=== PATIENT | female | born 1950 | race Caucasian/White ===

== ENCOUNTER → 2018-03-25 | Outpatient (CLI) | payer MEDICARE, OTHER ==
--- NOTE | 2018-03-26 10:45 | RADIOLOGY REPORT (SQ) ---
EXAM DESCRIPTION: PET CT SKULL/THIGH COMPLETED DATE/TIME: 03/25/2018 6:52 pm REASON FOR STUDY: MALIGNANT NEOPLASM OF RECTUM C20 MALIGNANT NEOPLASM OF RECTUM COMPARISON: None. RADIONUCLIDE AND DOSE: 12.2 mCi F18 FDG The route of agent administration: Intravenous FASTING BLOOD SUGAR: 92 mg/dl CONTRAST TYPE AND DOSE: No CT contrast given. TECHNIQUE: Blood glucose level was verified. Above dose of FDG was injected intravenously. 2-D seg mented attenuation correction images were obtained from the base of the skull to the midthighs. Nonc ontrast CT images were obtained for attenuation correction and fusion with emission images. CT image s were performed without oral or intravenous contrast and are not sensitive for parenchymal lesions. A series of overlapping emission PET images were obtained. Images reviewed and manipulated at [facility] work station by the radiologist. Images stored on PACS. LIMITATIONS: None. FINDINGS: HEAD AND NECK: Subcentimeter nodule right lower pole thyroid SUV 8.2. Subcentimeter nodul e left lower pole thyroid SUV 6.3. CHEST: No areas of abnormal metabolic activity in the chest. ABDOMEN AND PELVIS: There is circumferential distal rectal increased activity with SUV of 18. This c orrelates with history of tumor. Remainder of the abdomen pelvis is otherwise unremarkable. PROXIMAL LOWER EXTREMITIES: No areas of abnormal metabolic activity in the soft tissues of the lower extremities. BONES: No abnormal metabolic activity in the visualized skeleton. ADDITIONAL CT FINDINGS: Old pins post ORIF right proximal humerus fracture. Degenerative changes lum bar spine. Colonic diverticuli without CT signs of diverticulitis. Post hysterectomy. OTHER: Liver background activity 2.4 SUV. Blood pool background activity 1.6 SUV IMPRESSION: Abnormal rectal activity worrisome for primary tumor. No PET-CT evidence of metastatic disease TECHNICAL DOCUMENTATION: JOB ID: [id number] [employer]- All Rights Reserved Reading location - IP/workstation name: [email or web address]
== END ==
LOC: RAD 16:30
PROVIDERS: ATTEND Internal Medicine Medical Oncology
DX: C20 Malignant neoplasm of rectum (principal)
CPT/HCPCS: 78815; A9552

== ENCOUNTER → 2018-04-01 | Outpatient (CLI) | payer MEDICARE, OTHER ==
--- NOTE | 2018-04-03 06:53 | RADIOLOGY REPORT (SQ) ---
EXAM DESCRIPTION: MRI PELVIS COMBO COMPLETED DATE/TIME: 04/01/2018 REASON FOR STUDY: MALIGNANT NEOPLASM OF RECTUM C20 MALIGNANT NEOPLASM OF RECTUM COMPARISON: None. TECHNIQUE: Sagittal, axial oblique, and coronal oblique T2-weighted images of the pelvis without con trast centered on the rectum. Axial images of the pelvis. FINDINGS: BRIEF DESCRIPTION OF MASS: 4.3 cm longitudinal by 3.1 cm AP x 1 cm transverse LOCATION OF TUMOR: Right lateral anorectal junction DISTANCE FROM ANORECTAL JUNCTION TO LOWER POLE OF TUMOR: 0 cm. Tumor extends into the rightward anal sphincter on sagittal image 20 and coronal image 13. CIRCUMFERENTIAL LOCATION OF TUMOR: Rightward lateral 50% circumferential involvement LENGTH OF TUMOR: 4.3 cm cm. INVOLVEMENT OF MUSCULARIS PROPIA: Yes EXTENSION BEYOND MUSCULARIS PROPIA: Not applicable. DISTANCE BETWEEN TUMOR AND MESORECTAL FASCIA: 2 mm PATHOLOGIC LYMPH NODES: None DESCRIPTION: Not applicable. EXTRAMURAL/VASCULAR INVASION: Not detected DESCRIPTION: Not applicable. INVASION OF PELVIC STRUCTURES: Not detected, patient is post hysterectomy. Fat planes between the va yashira and rectosigmoid are maintained DESCRIPTION: Not applicable. IMPRESSION: T STAGE: T2 Tumor invades but does not penetrate muscularis propria N STAGE: N0 No pathologic lymph nodes TECHNICAL DOCUMENTATION: JOB ID: [id number] [employer]- All Rights Reserved Reading location - IP/workstation name: [email or web address]
== END ==
LOC: RAD 14:00
PROVIDERS: ATTEND Radiology Radiation Oncology
DX: C20 Malignant neoplasm of rectum (principal)
CPT/HCPCS: 82565; 72197; A9576

== ENCOUNTER → 2018-08-09 | Outpatient (CLI) | payer MEDICARE, OTHER ==
--- NOTE | 2018-08-10 09:47 | XCELERA REPORT ---
[address] [address] Transthoracic Echocardiogram Report Name: RON CLAIRE Age: 68 yrs Gender: Female : 1950 Patient Status: Outpatient Patient Location: Study Date: 08/09/2018 03:01 PM Height: 63 in Weight: 260 lb BSA: 2.2 m2 Procedure: A complete two-dimensional transthoracic echocardiogram was performed (2D, M-mode, spectral and color flow Doppler). The study was technically difficult with many images being suboptimal in quality. Reason For Study: SOB Ordering Physician: RENATO HAWLEY Performed By: Gigi Posadas Interpretation Summary The study was technically difficult with many images being suboptimal in quality. Clinical correllation is requested. The left ventricular ejection fraction is within normal limits. Consider additional methods to assess LVEF such as MUGA scan, CTA heart, cardiac MRI, CEDRICK, etc. if clinically indicated. There is mild concentric left ventricular hypertrophy. The left ventricle is grossly normal size. Doppler measurements suggest impaired left ventricular relaxation, which is associated with grade I/IV or mild diastolic dysfunction Regional wall motion abnormalities cannot be excluded due to limited visualization. Right ventricular function cannot be assessed due to poor image quality. The right atrium is normal in size The left atrial size is normal. There is no mitral valve stenosis. There is no mitral regurgitation noted. There is no aortic valve stenosis No aortic regurgitation is present. There is a trace or physiologic amount of tricuspid regurgitation Tricuspid regurgitation jet envelope not well defined to measure RV systolic pressure accurately. The pulmonic valve is not well visualized. The aortic root is not well visualized but is probably normal size. The inferior vena cava was not well visualized There is no pericardial effusion. MMode/2D Measurements & Calculations RVDd: 3.6 cm LVIDd: 5.2 cm FS: 31.0 % Ao root diam: 3.1 cm IVSd: 1.1 cm LVIDs: 3.6 cm EDV(Teich): 127.7 ml Ao root area: 7.6 cm2 LVPWd: 1.1 cm ESV(Teich): 53.3 ml LA dimension: 3.0 cm EF(Teich): 58.3 % Doppler Measurements & Calculations MV E max yessica: MV P1/2t max yessica: Ao V2 max: LV V1 max P.1 cm/sec 73.5 cm/sec 162.2 cm/sec 6.3 mmHg MV A max yessica: MV P1/2t: 83.5 msec Ao max PG: LV V1 max: 98.7 cm/sec MVA(P1/2t): 2.6 cm2 10.5 mmHg 125.6 cm/sec MV E/A: 0.73 MV dec slope: 257.9 cm/sec2 MV dec time: 0.28 sec PA V2 max: TR max yessica: MV P1/2t-pr_phl: 90.8 cm/sec 187.1 cm/sec 83.5 msec PA max PG: TR max P.0 mmHg 3.3 mmHg Left Ventricle The left ventricle is grossly normal size. There is mild concentric left ventricular hypertrophy. The left ventricular ejection fraction is within normal limits. Consider additional methods to assess LVEF such as MUGA scan, CTA heart, cardiac MRI, CEDRICK, etc. if clinically indicated. Doppler measurements suggest impaired left ventricular relaxation, which is associated with grade I/IV or mild diastolic dysfunction. Regional wall motion abnormalities cannot be excluded due to limited visualization. Right Ventricle The right ventricle is not well visualized secondary to technical limitations. Right ventricular function cannot be assessed due to poor image quality. Atria The right atrium is normal in size. The left atrial size is normal. Interarterial septum not well visualized and not well dopplered. Cannot comment on ASD/PFO presence. Mitral Valve The mitral valve leaflets are sclerotic, but show no functional abnormalities. There is no mitral valve stenosis. There is no mitral regurgitation noted. Aortic Valve The aortic valve is not well visualized secondary to technical limitations. There is no aortic valve stenosis. No aortic regurgitation is present. Tricuspid Valve The tricuspid valve is not well visualized secondary to technical limitations. There is no tricuspid stenosis. There is a trace or physiologic amount of tricuspid regurgitation. Tricuspid regurgitation jet envelope not well defined to measure RV systolic pressure accurately. Pulmonic Valve The pulmonic valve is not well visualized. Great Vessels The aortic root is not well visualized but is probably normal size. The inferior vena cava was not well visualized. Effusions There is no pericardial effusion. : RENATO HAWLEY > Shyanne Doe
== END ==
LOC: SP 14:19
PROVIDERS: ATTEND Internal Medicine Medical Oncology
DX: R06.02 Shortness of breath (principal)
CPT/HCPCS: 93306

== ENCOUNTER 2018-08-14 16:00 | Emergency (ER) | payer MEDICARE ==
[2018-08-14] MEDS ORDERED: NORMAL SALINE 1000 ML 1,000 ML with POTASSIUM CHLORIDE 30 MEQ IV PRN ×2 (17:05)
[2018-08-14] MEDS ORDERED: POTASSIUM CHLORIDE 20 MEQ/15 ML UDCUP PO ONE ×2 (17:06→17:12)
--- NOTE | 2018-08-14 17:09 | ER Document Report ---
ED Medical Screen (RME) - General Chief Complaint: Abnormal Lab Results Stated Complaint: DIFFICULTY BREATHING Time Seen by Provider: 08/14/18 16:43 TRAVEL OUTSIDE OF THE [place] IN LAST 30 DAYS: No - HPI Patient complains to provider of: Hypokalemia Onset: Other - 68-year-old female presents for evaluation of hypokalemia found well attempting to obtain her normal chemotherapy regimen for her rectal cancer. Was noted to have a potassium of 2.5 and was subsequently sent to the emergency room. - Related Data Allergies/Adverse Reactions: No Known Allergies Allergy (Unverified 08/14/18 16:06) Past Medical History - Social History Chew tobacco use (# tins/day): No Frequency of alcohol use: None Drug Abuse: None Neurological Medical History: Reports: Hx Migraine Renal/ Medical History: Denies: Hx Peritoneal Dialysis GI Medical History: Reports: Hx Gastroesophageal Reflux Disease Musculoskeltal Medical History: Reports Hx Arthritis Past Surgical History: Reports: Hx Section, Hx Hysterectomy, Hx Orthopedic Surgery - bilateral knees; right arm; spinal fusions Physical Exam - Vital signs Vitals: Temp Pulse Resp BP Pulse Ox 98.9 F 106 H 18 124/65 99 08/14/18 16:11 08/14/18 16:11 08/14/18 16:11 08/14/18 16:11 08/14/18 16:11 Course - Re-evaluation Re-evalutation: 08/14/18 17:08 This is a 5-year-old female presents for evaluation of hypokalemia from her oncologist. She is never had any problems with her potassium in the past, was given oral supplementation yesterday has taken 2 pills last night 2 pills this morning is continued to have a low potassium today. As this patient will likely require IV supplementation oral supplementation will plan for cardiac monitoring obtaining a magnesium as well. I performed a rapid medical screening examination on this patient will defer further imaging, tests, disposition to next provider. - Vital Signs Vital signs: Temp Pulse Resp BP Pulse Ox 98.9 F 106 H 18 124/65 99 08/14/18 16:11 08/14/18 16:11 08/14/18 16:11 08/14/18 16:11 08/14/18 16:11 Doctor's Discharge - Discharge Referrals: RENATO HAWLEY MD [Primary Care Provider] - Follow up as needed
--- NOTE | 2018-08-14 17:31 | ER Document Report ---
ED General - General Chief Complaint: Abnormal Lab Results Stated Complaint: DIFFICULTY BREATHING Time Seen by Provider: 08/14/18 16:43 TRAVEL OUTSIDE OF THE [place] IN LAST 30 DAYS: No - HPI Notes: Patient is a 68-year-old female that presents to the emergency department for chief complaint of hypokalemia. Patient has rectal cancer and received chemotherapy today. Her oncologist has been drawing routine lab work and monitoring her hypokalemia. Patient reports she was started on oral potassium 40 mg yesterday and took a second dose today. She then had a repeat blood test which showed persistent hypokalemia at 2.5. Patient was referred to the emergency room for further workup of her hypokalemia. She states that she has had some lower extremity swelling but is not on any diuretics for concern of her potassium issues. She states some intermittent shortness of breath but currently is not feeling any shortness of breath. She denies any chest pain, fevers and palpitations. She denies any diaphoresis. She is nauseated but states that is usual after receiving chemotherapy. She denies any history of hypokalemia in the past. Past Medical History: rectal cancer Past Surgical History: Reviewed in chart Social History: Reviewed in chart Family History: Reviewed and noncontributory for presenting illness Allergies: Reviewed, see documented allergy list. REVIEW OF SYSTEMS: CONSTITUTIONAL : No fever No chills No diaphoresis No recent illness EENT: No vision changes No congestion No sore throat CARDIOVASCULAR: No chest pain No palpitations Edema RESPIRATORY: No shortness of breath No cough No difficulty breathing GASTROINTESTINAL: No abdominal pain No nausea No vomiting No diarrhea GENITOURINARY: No dysuria No hematuria No difficulty urinating MUSCULOSKELETAL: No back pain No leg pain No arm pain SKIN: No rashes No lesions LYMPHATIC: No swollen, enlarged glands. NEUROLOGICAL: No lightheadedness No headache No weakness No paresthesias PSYCHIATRIC: No anxiety No depression PHYSICAL EXAMINATION: Vital signs reviewed, nursing noted reviewed. GENERAL: Well-appearing, well-nourished and in no acute distress. HEAD: Atraumatic, normocephalic. EYES: Eyes appear normal, extraocular movements intact, sclera anicteric, conjunctiva are normal. ENT: nares patent, oropharynx clear without exudates. Moist mucous membranes. NECK: Normal range of motion, supple without lymphadenopathy LUNGS: Breath sounds clear to auscultation bilaterally and equal. No wheezes rales or rhonchi. HEART: Regular rate and rhythm without murmurs ABDOMEN: Soft, nontender, normoactive bowel sounds. No rebound, guarding, or rigidity. No masses appreciated. EXTREMITIES: Nontender, good range of motion, +2 pitting edema bilateral lower extremities NEUROLOGICAL: No focal neurological deficits. Moves all extremities spontaneously Motor and sensory grossly intact on exam. PSYCH: Normal mood, normal affect. SKIN: Warm, Dry, normal turgor, no rashes or lesions noted on exposed skin - Related Data Allergies/Adverse Reactions: No Known Allergies Allergy (Unverified 08/14/18 16:06) Past Medical History - Social History Smoking Status: Never Smoker Chew tobacco use (# tins/day): No Frequency of alcohol use: None Drug Abuse: None Family History: Reviewed & Not Pertinent Patient has suicidal ideation: No Patient has homicidal ideation: No Neurological Medical History: Reports: Hx Migraine Renal/ Medical History: Denies: Hx Peritoneal Dialysis GI Medical History: Reports: Hx Gastroesophageal Reflux Disease Musculoskeletal Medical History: Reports Hx Arthritis Past Surgical History: Reports: Hx Section, Hx Hysterectomy, Hx Orthopedic Surgery - bilateral knees; right arm; spinal fusions Review of Systems - Review of Systems Notes: Dictated Physical Exam - Vital signs Vitals: Temp Pulse Resp BP Pulse Ox 98.9 F 106 H 18 124/65 99 08/14/18 16:11 08/14/18 16:11 08/14/18 16:11 08/14/18 16:11 08/14/18 16:11 - Notes Notes: Dictated Course - Re-evaluation Re-evalutation: 08/14/18 17:31 Vitals reviewed. Nursing notes reviewed. Patient in no acute distress. Her potassium today was 2.5. She was ordered placement. She has been taking home potassium supplementation with no improvement and is requiring admission for cardiac monitoring and repeat potassium levels. Patient is in agreement with this plan. 08/14/18 17:47 Patient's care was discussed with Dr. Frausto. Because she has tried potassium replacement at home with persistent hypokalemia I discussed admitting the patient with him. He would like for her to have replacement in the emergency room with repeat BMP tonight. If she is still low on repeat BMP then he will accept admission otherwise she will follow for outpatient recheck in 1-2 days with her PCP. 08/14/18 22:07 Repeat BMP shows potassium is 3.3. Patient is currently asymptomatic. She will be discharged home in stable condition. She has a prescription for potassium 40 twice daily and will continue that prescription tomorrow. She will follow in 1-2 days with her primary care doctor for recheck of her potassium. She will return for any new or worsening symptoms or if she is unable to establish close follow-up. Laboratory 08/14/18 08/14/18 17:33 21:06 Sodium 136.7 L Potassium 3.3 L Chloride 104 Carbon Dioxide 27 Anion Gap 6 BUN 7 Creatinine 0.88 Est GFR ( Amer) > 60 Est GFR (Non-Af Amer) > 60 Glucose 128 H Calcium 8.1 L Magnesium 1.8 - Vital Signs Vital signs: Temp Pulse Resp BP Pulse Ox 98.9 F 106 H 22 H 126/36 H 95 08/14/18 16:11 08/14/18 16:11 08/14/18 21:01 08/14/18 21:01 08/14/18 21:01 - Laboratory Result Diagrams: 08/14/18 21:06 Laboratory results interpreted by me: 08/14/18 21:06 Sodium 136.7 L Potassium 3.3 L Glucose 128 H Calcium 8.1 L - EKG Interpretation by Me Additional EKG results interpreted by me: 08/14/18 17:48 Interpreted by myself 1744: Normal sinus rhythm, rate 87, left axis, right bundle branch block, left anterior fascicular block, no ectopy Discharge - Discharge Clinical Impression: Hypokalemia, Peripheral edema Condition: Stable Disposition: HOME, SELF-CARE Instructions: Hypokalemia ([facility]) Additional Instructions: Please return to the emergency department if you have any worsening, or concern of your symptoms. Please return to the emergency department if you develop chest pain, difficulty breathing, severe abdominal pain, or ongoing vomiting. Please follow-up with your primary care physician in 2-3 days for a recheck of your potassium If prescribed, take all medications as directed. If you have any questions or concerns do not hesitate to return the emergency department for evaluation. Continue taking your home potassium as already directed starting tomorrow morning Referrals: RENATO HAWLEY MD [Primary Care Provider] - Follow up in 3-5 days
[2018-08-14] MEDS: POTASSI CL 20 MEQ/50 ML RIDER 20 MEQ/50 ML RTUPB IV SCH ×2 (17:43→19:20)
[2018-08-14 21:32] LABS: ANION GAP 6 (5-19); BLOOD UREA NITROGEN 7 mg/dL (7-20); CALCIUM 8.1 mg/dL (8.4-10.2); CARBON DIOXIDE 27 mmol/L (22-30); CHLORIDE 104 mmol/L (98-107); GLUCOSE 128 mg/dL (75-110); POTASSIUM 3.3 mmol/L (3.6-5.0); SODIUM 136.7 mmol/L (137-145)
[2018-08-14 22:27] VITALS: BP 124/46
--- NOTE | 2018-08-15 10:12 | EKG REPORT ---
SEVERITY:- ABNORMAL ECG - SINUS RHYTHM RBBB AND LAFB : Confirmed by: Katy Zaldivar MD 15-Aug-2018 10:12:20
== END 2018-08-14 22:27 | disposition home or self-care (01) ==
LOC: ER 16:00
DX: E87.6 Hypokalemia (principal); R60.0 Localized edema; C20 Malignant neoplasm of rectum; R06.02 Shortness of breath; R11.0 Nausea; Z79.899 Other long term (current) drug therapy; I45.2 Bifascicular block
CPT/HCPCS: 93005; 36591; 99285; 96365; 96366; 36415; 83735; 80048; 80053; 93010; A9270; J3480

== ENCOUNTER 2018-10-05 12:11 | Emergency (ER) | payer MEDICARE, OTHER ==
[2018-10-05 12:21] VITALS: BP 136/64
--- NOTE | 2018-10-05 13:01 | ER Document Report ---
ED Fall - General Chief Complaint: Fall Stated Complaint: FALL/HEAD AND WRIST INJURY Time Seen by Provider: 10/05/18 12:25 Mode of Arrival: Ambulatory Information source: Patient Notes: Chief complaint: Head injury History of complain:( obtained from----patient) 68 years old female on Xarelto, had a fall yesterday and injured her right wrist as well as right periorbital region. Went to see her orthopedic surgeon and was diagnosed with wrist fracture, splinted. Then went to see her oncologist oncologist sent over here to be ruled out for intracranial bleed. Denies any headache focal weakness. But chronic tingling sensation over lower extremities and upper extremities. She was given a walker but not been walking with the car. Tripped and fell last night. Denies any injury to the neck. Denies any injury to the upper limbs or lower denies any chest pain shortness of breath. Onset: As above since Duration: Yesterday Severity: Mild Quality: Mild Context: As described above Exacerbating factor and relieving factors: REVIEW OF SYSTEMS: CONSTITUTIONAL : Denies fever, chills, or sweats. Denies recent illness. EENT: Denies eye, ear, throat, or mouth pain or symptoms. Denies nasal or sinus congestion or discharge. Denies throat, tongue, or mouth swelling or difficulty swallowing. CARDIOVASCULAR: Denies chest pain. Denies palpitations or racing or irregular heart beat. Denies ankle edema. RESPIRATORY: Denies cough, cold, or chest congestion. Denies shortness of breath, difficulty breathing, or wheezing. GASTROINTESTINAL: Denies distention. Denies nausea, vomiting, or diarrhea. Denies blood in vomitus, stools, or per rectum. Denies black, tarry stools. Denies constipation. GENITOURINARY: Denies difficulty urinating, painful urination, burning, frequency, blood in urine, or discharge. FEMALE GENITOURINARY: Denies vaginal bleeding, heavy or abnormal periods, irregular periods. Denies vaginal discharge or odor. MUSCULOSKELETAL: Denies back or neck pain or stiffness. Denies joint pain or swelling. SKIN: Denies rash, lesions or sores. HEMATOLOGIC : Denies easy bruising or bleeding. LYMPHATIC: Denies swollen, enlarged glands. NEUROLOGICAL: Denies confusion or altered mental status. Denies passing out or loss of consciousness. Denies dizziness or lightheadedness. Denies headache. Denies weakness or paralysis or loss of use of either side. Denies problems with gait or speech. Denies sensory loss, numbness, or tingling. Denies seizures. PSYCHIATRIC: Denies anxiety or stress. Denies depression, suicidal ideation, or homicidal ideation. ALL OTHER SYSTEMS REVIEWED AND NEGATIVE. PHYSICAL EXAMINATION: GENERAL: Well-appearing, well-nourished and in no acute distress. Obesity HEAD: Atraumatic, normocephalic. Right periorbital contusion noted with tenderness. EYES: Pupils equal round and reactive to light, extraocular movements intact, conjunctiva are normal. ENT: Nares patent, oropharynx clear without exudates. Moist mucous membranes. NECK: Normal range of motion, supple without lymphadenopathy LUNGS: Breath sounds clear to auscultation bilaterally and equal. No wheezes rales or rhonchi. HEART: Regular rate and rhythm without murmurs ABDOMEN: Soft, nontender, nondistended abdomen. No guarding, no rebound. No masses appreciated. Examination of genitals-deferred Musculoskeletal: Normal range of motion, no pitting or edema. No cyanosis. Except the right wrist. NEUROLOGICAL: Cranial nerves grossly intact. Normal speech, normal gait. Normal sensory, motor exams PSYCH: Normal mood, normal affect. SKIN: Warm, Dry, normal turgor, no rashes or lesions noted. Dictation was performed using [id number] voice recognition software TRAVEL OUTSIDE OF THE [place] IN LAST 30 DAYS: No - HPI Notes: Dictated - Related data Allergies/Adverse Reactions: No Known Allergies Allergy (Verified 10/05/18 12:11) Home Medications: neurotin, 600 mg qid. robaxin 750 mg 1 prn. fiorcet 1-2 prn. melatonin 10 mg qhs. zofran 4 mg prn. ativan 1 mg prn for nausea. phenergan 25 mg prn. xeralto 20mg daily. lasix 40 mg daily. aldactone 25 mg daily. potassium 20 meq daily Past Medical History - Social History Smoking Status: Never Smoker Chew tobacco use (# tins/day): No Frequency of alcohol use: None Drug Abuse: None Lives with: Family Family History: Reviewed & Not Pertinent Patient has suicidal ideation: No Patient has homicidal ideation: No Neurological Medical History: Reports: Hx Migraine Renal/ Medical History: Denies: Hx Peritoneal Dialysis GI Medical History: Reports: Hx Gastroesophageal Reflux Disease Musculoskeletal Medical History: Reports Hx Arthritis Past Surgical History: Reports: Hx Section, Hx Hysterectomy, Hx Orthopedic Surgery - bilateral knees; right arm; spinal fusions Review of Systems - Review of Systems Notes: Dictated Physical Exam - Vital signs Vitals: Temp Pulse Resp BP Pulse Ox 98.3 F 103 H 18 136/64 H 96 10/05/18 12:19 10/05/18 12:19 10/05/18 12:19 10/05/18 12:19 10/05/18 12:19 - Notes Notes: Dictated Course - Vital Signs Vital signs: Temp Pulse Resp BP Pulse Ox 98.3 F 103 H 18 136/64 H 96 10/05/18 12:19 10/05/18 12:19 10/05/18 12:19 10/05/18 12:19 10/05/18 12:19 Discharge - Discharge Referrals: RENATO HAWLEY MD [Primary Care Provider] - Follow up as needed
--- NOTE | 2018-10-05 13:11 | RADIOLOGY REPORT (SQ) ---
EXAM DESCRIPTION: CT HEAD WITHOUT COMPLETED DATE/TIME: 10/05/2018 12:57 pm REASON FOR STUDY: Fall injury to head neck and face , headache COMPARISON: CT facial bones same date TECHNIQUE: Axial images acquired through the brain without intravenous contrast. Images reviewed wi th bone, brain and subdural windows. Additional sagittal and coronal reconstructions were generated. Images stored on PACS. All CT scanners at this facility use dose modulation, iterative reconstruction, and/or weight based d osing when appropriate to reduce radiation dose to as low as reasonably achievable (ALARA). [facility]: Dose Right [facility]: CareDose [facility]: Dose Right [facility]: Teradose 4D [facility]: [employer] RADIATION DOSE: CT Rad equipment meets quality standard of care and radiation dose reduction techniq ues were employed. CTDIvol: 53.2 mGy. DLP: 991 mGy-cm. mGy. LIMITATIONS: None. FINDINGS: VENTRICLES: Normal size and contour. CEREBRUM: No masses. No acute brain parenchymal hemorrhage. No midline shift. No evidence for acut e infarction. Patient has an old left occipital craniotomy and focal encephalomalacia along the left occipital lobe axial image 13. CEREBELLUM: No masses. No hemorrhage. No alteration of density. No evidence for acute infarction. EXTRAAXIAL SPACES: Along the posterior falx, a thin rim acute subdural is present along the leftward falx, 2 mm in thickness. This report was called to Dr Dipti Reyna in the emergency room 1245 hours ORBITS AND GLOBE: No intra- or extraconal masses. Normal contour of globe without masses. CALVARIUM: Old occipital craniotomy. PARANASAL SINUSES: No fluid or mucosal thickening. SOFT TISSUES: Right frontal scalp hematoma without underlying skull fracture OTHER: Minimally depressed right nasal bone fracture, may be chronic or acute IMPRESSION: Thin rim acute falx subdural hemorrhage 2 mm in thickness. Right frontal scalp hematoma without underlying skull fracture Age-indeterminate right nasal bone fracture EVIDENCE OF ACUTE STROKE: NO. COMMENT: Pertinent findings on the imaging study reported as a CRITICAL RESULT to DIPTI REYNA MD at1 2:45 on 10/05/2018. Category of Critical Result: Thin rim acute falx subdural hemorrhage 2 mm in thickness. No mass effe ct Quality ID # [id number]: Final reports with documentation of one or more dose reduction techniques (e.g., Au tomated exposure control, adjustment of the mA and/or kV according to patient size, use of iterative reconstruction technique) TECHNICAL DOCUMENTATION: JOB ID: [id number] [employer]- All Rights Reserved Reading location - IP/workstation name: [email or web address]
--- NOTE | 2018-10-05 13:12 | ER Document Report ---
ED General - General Chief Complaint: Fall Stated Complaint: FALL/HEAD AND WRIST INJURY Time Seen by Provider: 10/05/18 12:25 Mode of Arrival: Ambulatory Notes: Patient is a 68-year-old female with history of rectal carcinoma, and DVT, currently on Xarelto that presents to the emergency department for chief complaint of head injury after fall. Patient reports that she had a mechanical fall yesterday, she tripped outside, and hit her head on the concrete, denies loss of consciousness. She has some pain in her wrist and knees bilaterally, she did fall onto her knees as well, she has bilateral total knee arthroplasties. She was seen by orthopedic surgeon today, she was diagnosed with a fracture of her right wrist, and placed in a splint, and is following up with them. She then went to her oncologist office, advised to go to the ED, to be evaluated for possible intracranial injury. She denies having any headache at this time, denies lightheadedness, numbness, tingling or weakness in any extremity, denies facial droop or slurred speech. She is otherwise been doing well with the exception of the pain related to her traumatic injuries. She does have pain and some swelling across her nose as well from her injury. She currently rates the pain she is having generally as a 4 out of 10, has not taken anything for pain today. She last took her Xarelto yesterday morning, did not take any today. Past Medical History: DVT, rectal cancer Past Surgical History: Hysterectomy Social History: Denies current tobacco, alcohol or illicit drug use Family History: Reviewed and noncontributory for presenting illness Allergies: Reviewed, see documented allergy list. REVIEW OF SYSTEMS: Other than noted above, the 12 point review of systems was reviewed with the patient and were negative, all pertinent findings are included in the HPI. PHYSICAL EXAMINATION: Vital signs reviewed, nursing noted reviewed. GENERAL: Well-appearing, well-nourished and in no acute distress. HEAD: Nasal bridge is mildly ecchymotic and edematous, tender to palpate, normocephalic. EYES: Periorbital ecchymosis on the right, no tenderness to palpation around the orbital rims, or over the zygoma, extraocular movements intact, sclera anicteric, conjunctiva are normal. ENT: nares patent, oropharynx clear without exudates. Moist mucous membranes. Tenderness to palpation over the nasal bridge. No septal hematomas bilaterally , TMs appear normal bilaterally, no CSF otorrhea, or hemotympanum NECK: Normal range of motion, supple without lymphadenopathy, no midline tenderness LUNGS: Breath sounds clear to auscultation bilaterally and equal. No wheezes rales or rhonchi. HEART: Regular rate and rhythm without murmurs ABDOMEN: Soft, nontender, normoactive bowel sounds. No rebound, guarding, or rigidity. No masses appreciated. EXTREMITIES: Patient has a Velcro splint over the right forearm, neurovascularly intact distally, cap refill less than 3 seconds in all digits. Patient has good range of motion of the bilateral lower extremities, particularly of the knees, she had mild anterior tenderness over the patella, mild ecchymosis, without large abrasion or lacerations, she has good range of motion with flexion and extension without difficulty or pain or discomfort. Patient has been able to ambulate, without pain or discomfort in the hips. NEUROLOGICAL: No focal neurological deficits. Moves all extremities spontaneously Motor and sensory grossly intact on exam. PSYCH: Normal mood, normal affect. SKIN: Warm, Dry, normal turgor, no rashes or lesions noted on exposed skin TRAVEL OUTSIDE OF THE [place] IN LAST 30 DAYS: No - Related Data Allergies/Adverse Reactions: No Known Allergies Allergy (Verified 10/05/18 12:11) Home Medications: neurotin, 600 mg qid. robaxin 750 mg 1 prn. fiorcet 1-2 prn. melatonin 10 mg qhs. zofran 4 mg prn. ativan 1 mg prn for nausea. phenergan 25 mg prn. xeralto 20mg daily. lasix 40 mg daily. aldactone 25 mg daily. potassium 20 meq daily Past Medical History - General Information source: Patient - Social History Smoking Status: Never Smoker Chew tobacco use (# tins/day): No Frequency of alcohol use: None Drug Abuse: None Lives with: Family Family History: Reviewed & Not Pertinent Patient has suicidal ideation: No Patient has homicidal ideation: No Neurological Medical History: Reports: Hx Migraine Renal/ Medical History: Denies: Hx Peritoneal Dialysis GI Medical History: Reports: Hx Gastroesophageal Reflux Disease Musculoskeletal Medical History: Reports Hx Arthritis Past Surgical History: Reports: Hx Section, Hx Hysterectomy, Hx Orthopedic Surgery - bilateral knees; right arm; spinal fusions Physical Exam - Vital signs Vitals: Temp Pulse Resp BP Pulse Ox 98.3 F 103 H 18 136/64 H 96 10/05/18 12:19 10/05/18 12:19 10/05/18 12:19 10/05/18 12:19 10/05/18 12:19 Course - Re-evaluation Re-evalutation: Patient seen and examined vital signs reviewed. Laboratory data and imaging were ordered as appropriate for the patient's presenting symptoms and complaint, with consideration of any critical or life threatening conditions that may be associated with their obtained history and exam as noted above. Patient was offered medication for pain but declined at this time stating that it was tolerable. Results were reviewed when available and demonstrated CT of the head demonstrated a subdural hematoma along the falx, measuring 2 mm, as well as nasal bridge fracture. I discussed this case with the radiologist, placed a call to [facility], and discussed the case with the trauma surgeon Dr. Hood, who after explaining the patient has had no neurological dysfunction , no depressed mental status, and has been ambulate without difficulty, that she has had her own observation., And he agreed that the patient would not need any further evaluation or workup for this unless her symptoms would change , and to withhold her Xarelto medication. No need for any anticoagulation reversal given that her last dose was over 24 hours ago. Our discussion included the risks and benefits of having the patient off Xarelto for her right upper extremity DVT, I discussed this with the patient, that she will need to be off of this medication for a minimum of 2 weeks, to follow-up with her splunk dashboard developer, I did call the patient's splunk dashboard developer office however she was not in office, but discussed this with her nurse Haley, who will relay the message that the patient needs to be off this medication, and they can discuss whether to continue it at that time, when weighing the risks and benefits in the office. Patient's blood work demonstrated leukocytosis, patient is undergoing chemotherapy, receives dexamethasone, with her chemotherapy, likely leukemoid reaction, no evidence of acute infection, this could also be acute phase reactant from the patient's acute injuries. The patient was re-evaluated and was stable, she was given potassium supplementation, patient will be discharged home, prescription for [place] to take for pain for her wrist, advised to follow-up with orthopedic surgeon as directed, she is given referral to ENT for her nasal bone fracture, and advised to follow-up with her oncologist as noted above. Evaluation was most consistent with subdural hematoma, closed head injury, fall , right wrist fracture, nasal bone fracture Results were discussed with the patient at this point, after careful consideration I feel that that patient can be discharged from the emergency department, the patient was educated treatments and reasons to return to the emergency department based on their presumed diagnosis as noted above, they were advised to followup with a primary care physician in 2-3 days. Patient was agreeable to plan of care. *Note is created using voice recognition software and may contain spelling, syntax or grammatical errors. Laboratory 10/05/18 10/05/18 10/05/18 13:14 13:14 13:14 WBC 22.2 H RBC 3.17 L Hgb 10.0 L Hct 29.5 L MCV 93 MCH 31.5 MCHC 33.8 RDW 17.5 H Plt Count 145 L Seg Neutrophils % 94.3 H Lymphocytes % 2.9 L Monocytes % 2.5 L Eosinophils % 0.1 Basophils % 0.2 Absolute Neutrophils 20.9 H Absolute Lymphocytes 0.6 Absolute Monocytes 0.6 Absolute Eosinophils 0.0 Absolute Basophils 0.1 PT 15.6 H INR 1.17 APTT 28.8 Sodium 137.5 Potassium 3.3 L Chloride 98 Carbon Dioxide 25 Anion Gap 15 BUN 7 Creatinine 0.62 Est GFR ( Amer) > 60 Est GFR (Non-Af Amer) > 60 Glucose 101 Calcium 9.0 Total Bilirubin 0.8 Direct Bilirubin 0.3 Neonat Total Bilirubin Not Reportable Neonat Direct Bilirubin Not Reportable Neonat Indirect Bili Not Reportable AST 62 H ALT 39 Alkaline Phosphatase 210 H Total Protein 6.8 Albumin [address] 10/05/18 12:25 IMPRESSION: No acute fracture or malalignment Facial Bones CT 10/05/18 12:25 IMPRESSION: Acute right nasal bone fracture, minimally depressed. Right frontal scalp swelling without underlying frontal bone fracture Head CT 10/05/18 12:25 IMPRESSION: Thin rim acute falx subdural hemorrhage 2 mm in thickness. Right frontal scalp hematoma without underlying skull fracture Age-indeterminate right nasal bone fracture EVIDENCE OF ACUTE STROKE: NO. - Vital Signs Vital signs: Temp Pulse Resp BP Pulse Ox 98.3 F 103 H 18 136/64 H 96 10/05/18 12:19 10/05/18 12:19 10/05/18 12:19 10/05/18 12:19 10/05/18 12:19 - Laboratory Result Diagrams: 10/05/18 13:14 10/05/18 13:14 Laboratory results interpreted by me: 10/05/18 10/05/18 10/05/18 13:14 13:14 13:14 WBC 22.2 H RBC 3.17 L Hgb 10.0 L Hct 29.5 L RDW 17.5 H Plt Count 145 L Seg Neutrophils % 94.3 H Lymphocytes % 2.9 L Monocytes % 2.5 L Absolute Neutrophils 20.9 H PT 15.6 H Potassium 3.3 L AST 62 H Alkaline Phosphatase 210 H Critical Care Note - Critical Care Note Total time excluding time spent on procedures (mins): 40 Comments: Critical care time 40 minutes exclusive from separate billable procedures for a patient requiring complex medical decision making, and high potential for clinical deterioration. In a patient on Xarelto, with a subdural hematoma, requiring emergent evaluation, examination, and re-evaluations, discussion with multiple consultants. Time spent obtaining history from patient or surrogate, discussions with consultants, development of treatment plan with patient or surrogate, evaluation of patient's response to treatment, examination of patient , ordering and performing treatments and interventions, ordering and review of laboratory studies, re-evaluation of patient's condition, ordering and review of radiographic studies and review of old charts Discharge - Discharge Clinical Impression: Subdural hematoma, Hypokalemia Closed head injury Qualifiers: Encounter type: initial encounter Qualified Code(s): S09.90XA - Unspecified injury of head, initial encounter Nasal bone fracture Qualifiers: Encounter type: initial encounter Fracture type: closed Qualified Code(s): S02.2XXA - Fracture of nasal bones, initial encounter for closed fracture Fall Qualifiers: Encounter type: initial encounter Qualified Code(s): W19.XXXA - Unspecified fall, initial encounter Right wrist fracture Qualifiers: Encounter type: initial encounter Fracture type: closed Qualified Code(s): S62.101A - Fracture of unspecified carpal bone, right wrist, initial encounter for closed fracture Condition: Stable Disposition: HOME, SELF-CARE Instructions: Fracture of the Nose ([facility]), Head Injury Precautions ([facility]) Additional Instructions: DISCONTINUE TAKING YOUR XARELTO UNTIL FURTHER INSTRUCTED BY YOUR ONCOLOGIST. IF YOU DEVELOP ANY SIGNS OF WORSENING SUCH WEAKNESS, OR NUMBESS, SLURRED SPEECH, OR SEVERE HEADACHE, PLEASE RETURN TO THE EMERGENCY DEPARTMENT IMMEDIATELY. Prescriptions: Hydrocodone/Acetaminophen [[place] 5-325 mg Tablet] 1 tab PO Q6H PRN 5 Days #20 tablet PRN Reason: HAND PAIN Referrals: RENATO HAWLEY MD [ACTIVE STAFF] - Follow up in 3-5 days LATRICIA TRINIDAD DO [ASSOCIATE] - Follow up as needed (ENT)
--- NOTE | 2018-10-05 13:14 | RADIOLOGY REPORT (SQ) ---
EXAM DESCRIPTION: CT FACIAL AREA WITHOUT COMPLETED DATE/TIME: 10/05/2018 12:57 pm REASON FOR STUDY: Fall injury to head neck and face COMPARISON: CT brain same date TECHNIQUE: Noncontrasted images through the facial bones and orbits windowed for bone and soft tissu e. Additional coronal and sagittal reconstructed images reviewed. All images stored on PACS. All CT scanners at this facility use dose modulation, iterative reconstruction, and/or weight based d osing when appropriate to reduce radiation dose to as low as reasonably achievable (ALARA). [facility]: Dose Right [facility]: CareDose [facility]: Dose Right [facility]: Teradose 4D [facility]: [employer] RADIATION DOSE: CT Rad equipment meets quality standard of care and radiation dose reduction techniq ues were employed. CTDIvol: 30.4 mGy. DLP: 545 mGy-cm. mGy. LIMITATIONS: None. FINDINGS: FACIAL BONES: Acute minimally depressed right nasal bone fracture. This is best shown on axial images 38-40. No other acute facial fractures are identified. Mandible intact. Upper cervica l spine intact. ORBITS: Intact. No fracture. Symmetric intact globes and retroorbital soft tissues. PARANASAL SINUSES: Clear. No significant mucosal thickening, mass or fluid. No nasal polyps. Maxill pérez sinus outlets are patent. SOFT TISSUES: Right frontal scalp swelling without underlying frontal bone fracture INFERIOR BRAIN: Posterior thin rim acute Falx subdural seen on CT brain is not included in the field of view OTHER: No other significant finding. IMPRESSION: Acute right nasal bone fracture, minimally depressed. Right frontal scalp swelling without underlying frontal bone fracture TECHNICAL DOCUMENTATION: JOB ID: [id number] Quality ID # [id number]: Final reports with documentation of one or more dose reduction techniques (e.g., Au tomated exposure control, adjustment of the mA and/or kV according to patient size, use of iterative reconstruction technique) 2010 [email or web address]- All Rights Reserved Reading location - IP/workstation name: [email or web address]
--- NOTE | 2018-10-05 13:16 | RADIOLOGY REPORT (SQ) ---
EXAM DESCRIPTION: CT CERVICAL SPINE WITHOUT COMPLETED DATE/TIME: 10/05/2018 12:57 pm REASON FOR STUDY: Fall injury to head neck and face neck pain COMPARISON: CT brain and CT facial bones same date TECHNIQUE: Axial images acquired through the cervical spine without intravenous contrast. Images re viewed with lung, soft tissue and bone windows. Reconstructed coronal and sagittal MPR images review ed. Images stored on PACS. All CT scanners at this facility use dose modulation, iterative reconstruction, and/or weight based d osing when appropriate to reduce radiation dose to as low as reasonably achievable (ALARA). [facility]: Dose Right [facility]: CareDose [facility]: Dose Right [facility]: Teradose 4D [facility]: [employer] RADIATION DOSE: CT Rad equipment meets quality standard of care and radiation dose reduction techniq ues were employed. CTDIvol: 23.8 mGy. DLP: 498 mGy-cm. mGy. LIMITATIONS: None. FINDINGS: ALIGNMENT: Anatomic. MINERALIZATION: Normal. VERTEBRAL BODIES: No fractures or dislocation. DISCS: Post fusion with anterior fixation plate and anchoring screws at C5-6. FACETS, LATERAL MASSES, POSTERIOR ELEMENTS: No fractures. No dislocation. No acute findings. HARDWARE: None in the spine. VISUALIZED RIBS: No fractures. LUNG APICES AND SOFT TISSUES: No significant or acute findings. OTHER: No other significant finding. IMPRESSION: No acute fracture or malalignment TECHNICAL DOCUMENTATION: JOB ID: [id number] Quality ID # [id number]: Final reports with documentation of one or more dose reduction techniques (e.g., Au tomated exposure control, adjustment of the mA and/or kV according to patient size, use of iterative reconstruction technique) 2010 [employer]- All Rights Reserved Reading location - IP/workstation name: [email or web address]
[2018-10-05 13:46] LABS: ABSOLUTE BASOPHILS # (AUTO) 0.1 10^3/uL (0.0-0.2); ABSOLUTE LYMPHOCYTES (AUTO) 0.6 10^3/uL (0.5-4.7); ABSOLUTE MONOCYTES (AUTO) 0.6 10^3/uL (0.1-1.4); ABSOLUTE NEUT (AUTO) 20.9 10^3/uL (1.7-8.2); BASOPHILS % (AUTO) 0.2 % (0-2); EOSINOPHILS % (AUTO) 0.1 % (0-6); HEMATOCRIT 29.5 % (36.0-47.0); LYMPHOCYTES % (AUTO) 2.9 % (13-45); MEAN CORPUSCULAR HEMOGLOBIN 31.5 pg (27.0-33.4); MEAN CORPUSCULAR HGB CONC 33.8 g/dL (32.0-36.0); MEAN CORPUSCULAR VOLUME 93 fl (80-97); MONOCYTES % (AUTO) 2.5 % (3-13); PLATELET COUNT 145 10^3/uL (150-450); RED BLOOD COUNT 3.17 10^6/uL (3.72-5.28); RED CELL DISTRIBUTION WIDTH 17.5 % (11.5-14.0); SEGMENTED NEUTROPHILS % (AUTO) 94.3 % (42-78); TOTAL CELLS COUNTED % (AUTO) 100 %; WHITE BLOOD COUNT 22.2 10^3/uL (4.0-10.5)
[2018-10-05 13:54] LABS: INTERNATIONAL RATION (INR) 1.17; PROTHROMBIN TIME 15.6 SEC (11.4-15.4)
[2018-10-05 13:55] LABS: PARTIAL THROMBOPLASTIN TIME 28.8 SEC (23.5-35.8)
[2018-10-05 14:14] LABS: ALANINE AMINOTRANSFERASE 39 U/L (9-52); ALBUMIN 3.8 g/dL (3.5-5.0); ALKALINE PHOSPHATASE 210 U/L (38-126); ANION GAP 15 (5-19); ASPARTATE AMINO TRANSFERASE 62 U/L (14-36); BILIRUBIN,DIRECT 0.3 mg/dL (0.0-0.4); BILIRUBIN,TOTAL 0.8 mg/dL (0.2-1.3); BLOOD UREA NITROGEN 7 mg/dL (7-20); CARBON DIOXIDE 25 mmol/L (22-30); CHLORIDE 98 mmol/L (98-107); GLUCOSE 101 mg/dL (75-110); POTASSIUM 3.3 mmol/L (3.6-5.0); SODIUM 137.5 mmol/L (137-145); TOTAL PROTEIN 6.8 g/dL (6.3-8.2)
[2018-10-05] MEDS ORDERED: POTASSIUM CHLORIDE 10 MEQ CAPSULE.ER PO ONE (14:24)
== END 2018-10-05 16:20 | disposition home or self-care (01) ==
LOC: ER 12:11
DX: S06.5X9A Traumatic subdural hemorrhage with loss of consciousness of unspecified duration, initial encounter (principal); S02.2XXA Fracture of nasal bones, initial encounter for closed fracture; S62.101A Fracture of unspecified carpal bone, right wrist, initial encounter for closed fracture; W01.10XA Fall on same level from slipping, tripping and stumbling with subsequent striking against unspecified object, initial encounter; E87.6 Hypokalemia; Z79.02 Long term (current) use of antithrombotics/antiplatelets; Z86.718 Personal history of other venous thrombosis and embolism; Z85.048 Personal history of other malignant neoplasm of rectum, rectosigmoid junction, and anus; Z90.710 Acquired absence of both cervix and uterus
CPT/HCPCS: 36415; 70450; 70486; 72125; 80053; 85025; 85610; 85730; 99285

== ENCOUNTER → 2018-11-17 | Outpatient (CLI) | payer MEDICARE, OTHER ==
--- NOTE | 2018-11-17 15:44 | RADIOLOGY REPORT (SQ) ---
EXAM DESCRIPTION: MRI LUMBAR SPINE COMBO COMPLETED DATE/TIME: 11/17/2018 10:36 am REASON FOR STUDY: LUMBAR SPINE PAIN M54.16 RADICULOPATHY, LUMBAR REGION COMPARISON: None. TECHNIQUE: Sagittal and Axial imaging includes T1, T1 post gadolinium, T2, STIR and gradient echo se quences. Coronal T2/HASTE imaging. CONTRAST TYPE AND DOSE: 20 mL Dotare[employer]. RENAL FUNCTION: GFR > 60. LIMITATIONS: None. FINDINGS: VISUALIZED UPPER ABDOMEN: Limited evaluation. No acute or suspicious findings suggested. SEGMENTATION: No transitional anatomy. The lowest well-developed disc space is labeled L5-S1. ALIGNMENT: Mild degenerative anterolisthesis of L4 on L5. VERTEBRAE: Intact. No fractures. BONE MARROW: Normal. No marrow replacement or reactive changes. DISC SIGNAL: Normal. No significant abnormal signal or loss of height. POSTERIOR ELEMENTS: Generally intact. No pars defect evident. HARDWARE: None in the spine. CORD AND CONUS: Normal in size and signal intensity. Conus at the appropriate level. SOFT TISSUES: No aortic aneurysm seen. No bulky retroperitoneal adenopathy or mass. No paraspinal mas s or fluid. L1-L2: No significant spinal stenosis or exit foraminal stenosis. L2-L3: Mild disc bulge. Facet and ligamentous hypertrophy with mild lateral recess narrowing. Mild central canal stenosis and exit foraminal stenosis. L3-L4: Generalized disc bulge. Ligamentous hypertrophy. Mild narrowing of the exit foramina. L4-L5: Mild disc bulge with mild narrowing of the exit foramina. L5-S1: No significant spinal stenosis or exit foraminal stenosis. LOWER THORACIC: Incompletely imaged. No stenosis seen. SACRUM: Visualized upper sacrum intact. ENHANCEMENT: No abnormal enhancement. OTHER: No other significant findings. IMPRESSION: Multilevel spondylosis. Most prominent changes L2-3 with mild central canal stenosis an d exit foraminal stenosis. TECHNICAL DOCUMENTATION: JOB ID: [id number] [employer]- All Rights Reserved Reading location - IP/workstation name: [email or web address]
== END ==
LOC: RAD 09:07
PROVIDERS: ATTEND Physician Assistant
DX: M54.16 Radiculopathy, lumbar region (principal)
CPT/HCPCS: 82565; 72158; A9576

== ENCOUNTER 2019-05-08 17:39 | Observation (INO) | payer MEDICARE, OTHER ==
[2019-05-08 18:07] LABS: ABSOLUTE EOSINOPHILS # (AUTO) 0.4 10^3/uL (0.0-0.6); ABSOLUTE LYMPHOCYTES (AUTO) 0.5 10^3/uL (0.5-4.7); ABSOLUTE MONOCYTES (AUTO) 0.7 10^3/uL (0.1-1.4); ABSOLUTE NEUT (AUTO) 7.2 10^3/uL (1.7-8.2); BASOPHILS % (AUTO) 0.5 % (0-2); HEMATOCRIT 26.4 % (36.0-47.0); HEMOGLOBIN 8.6 g/dL (12.0-15.5); MEAN CORPUSCULAR HEMOGLOBIN 25.2 pg (27.0-33.4); MEAN CORPUSCULAR HGB CONC 32.6 g/dL (32.0-36.0); MEAN CORPUSCULAR VOLUME 77 fl (80-97); MONOCYTES % (AUTO) 7.8 % (3-13); PLATELET COUNT 477 10^3/uL (150-450); RED BLOOD COUNT 3.42 10^6/uL (3.72-5.28); RED CELL DISTRIBUTION WIDTH 17.5 % (11.5-14.0); SEGMENTED NEUTROPHILS % (AUTO) 80.7 % (42-78); TOTAL CELLS COUNTED % (AUTO) 100 %; WHITE BLOOD COUNT 8.9 10^3/uL (4.0-10.5)
[2019-05-08 18:47] LABS: ANION GAP 7 (5-19); BLOOD UREA NITROGEN 8 mg/dL (7-20); CALCIUM 8.3 mg/dL (8.4-10.2); CARBON DIOXIDE 29 mmol/L (22-30); CHLORIDE 96 mmol/L (98-107); GLUCOSE 113 mg/dL (75-110); POTASSIUM 4.1 mmol/L (3.6-5.0); SODIUM 131.6 mmol/L (137-145)
[2019-05-08 19:26] LABS: APPEARANCE,URINE SLIGHTLY-CLOUDY; BILIRUBIN,URINE NEGATIVE (NEGATIVE); COLOR,URINE YELLOW; GLUCOSE, URINE NEGATIVE (NEGATIVE); KETONES,URINE NEGATIVE (NEGATIVE); LEUKOCYTE ESTERASE,URINE NEGATIVE (NEGATIVE); NITRITE,URINE NEGATIVE (NEGATIVE); PROTEIN,URINE 100 mg/dL (NEGATIVE); URINE SPECIFIC GRAVITY 1.015; UROBILINOGEN,URINE NEGATIVE mg/dL (<2.0)
--- NOTE | 2019-05-08 19:26 | ER Document Report ---
ED General - General Chief Complaint: Abnormal Lab Results Stated Complaint: WEAKNESS Time Seen by Provider: 05/08/19 18:52 Mode of Arrival: Medic Information source: Patient TRAVEL OUTSIDE OF THE [place] IN LAST 30 DAYS: No - HPI Patient complains to provider of: Patient said she was told to go to the emergency room for low blood count. Onset: Just prior to arrival Onset/Duration: Sudden Quality of pain: Sharp Severity: Mild Pain Level: 2 Context: Patient had colorectal surgery for stage I rectal cancer done by Dr. Swain at [facility]. The surgery was done on April 16, 2019. She was then d ischarged and sent to [facility]. Associated symptoms: Weakness Exacerbated by: Movement Relieved by: Remaining still Similar symptoms previously: No Recently seen / treated by doctor: Yes - Related Data Allergies/Adverse Reactions: No Known Allergies Allergy (Verified 10/05/18 12:11) Past Medical History - Social History Smoking Status: Unknown if Ever Smoked Family History: Reviewed & Not Pertinent Patient has suicidal ideation: No Patient has homicidal ideation: No Neurological Medical History: Reports: Hx Migraine Renal/ Medical History: Denies: Hx Peritoneal Dialysis GI Medical History: Reports: Hx Gastroesophageal Reflux Disease Musculoskeletal Medical History: Reports Hx Arthritis Past Surgical History: Reports: Hx Section, Hx Hysterectomy, Hx Orthopedic Surgery - bilateral knees; right arm; spinal fusions Review of Systems - Review of Systems Constitutional: Malaise, Weakness EENT: No symptoms reported Cardiovascular: No symptoms reported Respiratory: Short of breath Gastrointestinal: No symptoms reported Genitourinary: No symptoms reported Female Genitourinary: No symptoms reported Musculoskeletal: No symptoms reported Skin: No symptoms reported Hematologic/Lymphatic: No symptoms reported Neurological/Psychological: No symptoms reported -: Yes All other systems reviewed and negative Physical Exam - Vital signs Vitals: Resp Pulse Ox 13 97 05/08/19 17:50 05/08/19 17:50 Interpretation: Normal - General General appearance: Appears well, Alert - HEENT Head: Normocephalic, Atraumatic Eyes: Normal Pupils: PERRL - Respiratory Respiratory status: No respiratory distress Chest status: Nontender Breath sounds: Normal Chest palpation: Normal - Cardiovascular Rhythm: Regular Heart sounds: Normal auscultation Murmur: No - Abdominal Inspection: Normal Distension: No distension Bowel sounds: Normal Tenderness: Nontender Organomegaly: No organomegaly - Rectal Notes: Wound dehiscence was noted at this site of the rectal surgery in the perineum. There is a foul-smelling purulent discharge from the wound with slough on the ulcer bed. No active bleeding was noted on inspection. Digital rectal exam was not done. The outboard motor tester was RN taking care of the patient. - Back Back: Normal, Nontender - Extremities General upper extremity: Normal inspection, Nontender, Normal color, Normal ROM, Normal temperature General lower extremity: Normal inspection, Nontender, Normal color, Normal ROM, Normal temperature, Normal weight bearing. No: Karen's sign - Neurological Neuro grossly intact: Yes Cognition: Normal Orientation: AAOx4 Coleman Coma Scale Eye Opening: Spontaneous Coleman Coma Scale Verbal: Oriented Cecille Coma Scale Motor: Obeys Commands Coleman Coma Scale Total: 15 Speech: Normal Motor strength normal: LUE, RUE, LLE, RLE Sensory: Normal - Psychological Associated symptoms: Normal affect, Normal mood - Skin Skin Temperature: Warm Skin Moisture: Dry Skin Color: Normal Course - Vital Signs Vital signs: Temp Pulse Resp BP Pulse Ox 98.1 F 76 16 135/42 H 96 05/09/19 17:13 05/09/19 17:13 05/09/19 17:13 05/09/19 17:13 05/09/19 17:13 - Laboratory Result Diagrams: 05/09/19 05:00 05/08/19 17:45 Laboratory results interpreted by me: 05/08/19 05/08/19 05/08/19 17:45 17:45 19:07 RBC 3.42 L Hgb 8.6 L Hct 26.4 L MCV 77 L MCH 25.2 L RDW 17.5 H Plt Count 477 H Seg Neutrophils % 80.7 H Lymphocytes % 6.0 L Sodium 131.6 L Chloride 96 L Glucose 113 H Calcium 8.3 L Urine Protein 100 H Urine Blood SMALL H - Diagnostic Test Radiology reviewed: Image reviewed, Reports reviewed - Transfer of Care Notes: 05/09/19 20:05 Patient will be admitted to the hospital by Dr. Drake the general surgeon for further management. Initially patient was accepted to be transferred to [facility] by Dr. Helton. However there is no bed in the hospital and emergency room is full to capacity prompting Dr. Drake to admit the patient to this facility. There is a possibility that patient will be transferred to [facility] as soon as a bed becomes available in that facility. Discharge - Discharge Clinical Impression: Phlegmon Surgical wound dehiscence Qualifiers: Encounter type: initial encounter Qualified Code(s): T81.31XA - Disruption of external operation (surgical) wound, not elsewhere classified, initial encounter Anemia Qualifiers: Anemia type: iron deficiency Iron deficiency anemia type: chronic blood loss Qualified Code(s): D50.0 - Iron deficiency anemia secondary to blood loss (chronic) Condition: Stable Disposition: ADMITTED INPATIENT Admitting Provider: Dr Drake. Unit Admitted: Surgical Floor
[2019-05-08] MEDS ORDERED: FENTANYL CITRATE INJ/PF 100 MCG/2 ML AMPUL IV ONE (19:34)
--- NOTE | 2019-05-08 21:32 | RADIOLOGY REPORT (SQ) ---
EXAM DESCRIPTION: CT ABDOMEN PELVIS WITH IV CONTRAST COMPLETED DATE/TME: 05/08/2019 19:24 CLINICAL HISTORY: 68 years, Female, Rectal pain COMPARISON: None. TECHNIQUE: Contrast enhanced CT of the abdomen/pelvis was performed. Coronal and sagittal reformations were created. Images stored on PACS. All CT scanners at this facility use dose modulation, iterative reconstruction, and/or weight based dosing when appropriate to reduce radiation dose to as low as reasonably achievable (ALARA). [facility]: Dose Right [facility]: CareDose [facility]: Dose Right [facility]: Teradose 4D [facility]: [employer] Technologies LIMITATIONS: None. FINDINGS: Limited evaluation of the lower chest reveals clear lung bases. The liver enhances normally. The spleen is enlarged, measuring 17 cm in length. It appears to enhance normally. There is fatty replacement of the pancreas. The gallbladder and both adrenal glands appear normal. Both kidneys enhance symmetrically. There is no hydronephrosis or hydroureter. A Duval catheter is in place, thus the bladder is collapsed. It contains a small focus of gas, iatrogenic. The stomach is distended with gas and fluid. There are postsurgical changes of left hemicolectomy with central abdomen end colostomy. Otherwise, the small and large bowel appear normal in caliber without areas of focal wall thickening. There is no evidence of bowel obstruction. However, there are a few foci of extraluminal gas density located about the low pelvis immediately posterior to the vaginal cuff as well as about the gluteal cleft/perianal region, likely communicating with the symphysis. Superimposed inflammatory stranding is noted about this region, particularly within the mesorectal fat and perianal regions. Only a small amount of gas density closely approximates a loop of small bowel on image 65 of series 5. However, this loop of small bowel appears normal otherwise. An inferior vena cava filter is in position. Calcifications are evident about the abdominal aorta and proximal iliac vessels. No suspicious lymphadenopathy is appreciated. Bone windows show no destructive osseous lesions. IMPRESSION: Postsurgical changes of left hemicolectomy with end colostomy. A small amount of extraluminal free air is noted about the low pelvis at the level of the mesorectal fat extending towards the perianal region. This is most likely related to an underlying ulcer about the perianal region or postsurgical in etiology. Additionally, the superimposed inflammatory stranding about the mesorectal fat and perirenal region presumably corresponds to phlegmon. No drainable fluid collection is identified about the low pelvis or perianal region. Splenomegaly. THIS REPORT CONTAINS FINDINGS THAT MAY BE CRITICAL TO PATIENT CARE: The findings were verbally discussed via telephone conference with Dr. CELESTE DEAL by Dr. Bejarano on 05/08/2019 8:34 PM CDT .The results were acknowledged and understood. TECHNICAL DOCUMENTATION: Quality ID # 436: Final reports with documentation of one or more dose reduction techniques (e.g., Automated exposure control, adjustment of the mA and/or kV according to patient size, use of iterative reconstruction technique) copyright 2010 [employer] [facility]- All Rights Reserved
[2019-05-08] MEDS ORDERED: PIPERACILLIN/TAZOBACTAM 4.5 GM VIAL IV ONE (22:10)
[2019-05-09] MEDS ORDERED: NORMAL SALINE 1000 ML 1,000 ML IV PRN (01:39)
[2019-05-09] MEDS ORDERED: HYDROCODONE/ACETAMINOPHEN 5-325 MG TABLET PO PRN (01:42)
[2019-05-09] MEDS: ONDANSETRON HCL INJ/PF 4 MG/2 ML SDV IV PRN ×2 (02:22→08:38)
[2019-05-09 05:06] LABS: HEMATOCRIT 24.2 % (36.0-47.0); MEAN CORPUSCULAR HEMOGLOBIN 25.4 pg (27.0-33.4); MEAN CORPUSCULAR VOLUME 77 fl (80-97); PLATELET COUNT 380 10^3/uL (150-450); RED BLOOD COUNT 3.14 10^6/uL (3.72-5.28); RED CELL DISTRIBUTION WIDTH 17.5 % (11.5-14.0); WHITE BLOOD COUNT 7.7 10^3/uL (4.0-10.5)
[2019-05-09] MEDS ORDERED: MORPHINE SULFATE 10 MG/ML INJ ONE (06:48)
[2019-05-09] MEDS ORDERED: MORPHINE SULFATE 10 MG/ML INJ IV ONE (06:50)
--- NOTE | 2019-05-09 07:26 | PDOC H&P ---
History of Present Illness Admission Date/PCP: SUE ZHANG Patient complains of: weakness History of Present Illness: RON CLAIRE is a 68 year old female status post abdominoperineal resection. She was seen in the ER for weakness and failure to thrive. The patient was found to be anemic, and the hospitalist (Dr. Caban) was asked to see the patient, but refused. Arrangements were made for the patient to be transported to [facility] to see a physician there. We are awaiting a bed. I have been consulted by the ER to admit the patient to our facility while awaiting transfer (again, because Dr. Caban has refused to see the patient). Patient reports weakness. She has an open perineal wound. This has been open since she left [facility], due to infection. Past Medical History Neurological Medical History: Reports: Migraine GI Medical History: Reports: Gastroesophageal Reflux Disease Musculoskeltal Medical History: Reports: Arthritis Hematology: Reports: Anemia Past Surgical History Past Surgical History: Reports: Section, Hysterectomy, Orthopedic Surgery - bilateral knees; right arm; spinal fusions, Other - Abdominoperineal resection for cancer Social History Smoking Status: Unknown if Ever Smoked Hx Recreational Drug Use: No Hx Prescription Drug Abuse: No Family History Family History: Reviewed & Not Pertinent Parental Family History Reviewed: Yes Children Family History Reviewed: Yes Sibling(s) Family History Reviewed.: Yes Medication/Allergy Home Medications: Hydrocodone/Acetaminophen [Bristow 5-325 mg Tablet] 1 tab PO Q6H PRN 5 Days #20 tablet 10/05/18 Allergies/Adverse Reactions: No Known Allergies Allergy (Verified 10/05/18 12:11) Review of Systems Constitutional: PRESENT: fatigue, weakness. ABSENT: fever(s) Ears: ABSENT: hearing changes Nose, Mouth, and Throat: ABSENT: sore throat Cardiovascular: ABSENT: chest pain Gastrointestinal: ABSENT: abdominal pain, heartburn Genitourinary: ABSENT: dysuria Musculoskeletal: ABSENT: back pain Integumentary: PRESENT: wounds, other - Purulent drainage from perineal wound Neurological: PRESENT: dizziness, weakness Psychiatric: ABSENT: anxiety, hallucinations Endocrine: ABSENT: cold intolerance, heat intolerance Hematologic/Lymphatic: ABSENT: easy bleeding, easy bruising Physical Exam Vital Signs: Temp Pulse Resp BP Pulse Ox 99.6 F 14 133/54 H 96 05/08/19 23:02 05/08/19 23:02 05/08/19 23:02 05/08/19 23:02 Intake & Output 05/07/19 05/08/19 05/09/19 06:59 06:59 06:59 Weight 95.3 kg General appearance: PRESENT: no acute distress, morbidly obese Head exam: PRESENT: atraumatic, normocephalic Eye exam: PRESENT: EOMI, PERRLA Mouth exam: PRESENT: moist, neck supple Neck exam: ABSENT: meningismus, tenderness, thyromegaly, tracheal deviation Respiratory exam: PRESENT: clear to auscultation mariana, unlabored. ABSENT: chest wall tenderness, tachypnea Cardiovascular exam: PRESENT: RRR Pulses: PRESENT: normal radial pulses Vascular exam: PRESENT: normal capillary refill GI/Abdominal exam: PRESENT: soft. ABSENT: distended, rigid, tenderness Rectal exam: PRESENT: other - Perineal wound is open with purulent drainage. There is deep packing in the wound that looks at least several days old. Gentrourinary exam: PRESENT: other - Duval catheter in place Extremities exam: ABSENT: clubbing Musculoskeletal exam: ABSENT: deformity Neurological exam: PRESENT: alert, awake, oriented to person, oriented to place, oriented to time, oriented to situation, CN II-XII grossly intact Psychiatric exam: ABSENT: anxious, depressed Focused psych exam: ABSENT: delusional Skin exam: ABSENT: cyanosis, erythema, jaundice Results Laboratory Results: 05/08/19 17:45 05/08/19 17:45 05/08/19 05/08/19 05/08/19 17:45 17:45 18:46 WBC 8.9 RBC 3.42 L Hgb 8.6 L Hct 26.4 L MCV 77 L MCH 25.2 L MCHC 32.6 RDW 17.5 H Plt Count 477 H Seg Neutrophils % 80.7 H Lymphocytes % 6.0 L Monocytes % 7.8 Eosinophils % 5.0 Basophils % 0.5 Absolute Neutrophils 7.2 Absolute Lymphocytes 0.5 Absolute Monocytes 0.7 Absolute Eosinophils 0.4 Absolute Basophils 0.0 Sodium 131.6 L Potassium 4.1 Chloride 96 L Carbon Dioxide 29 Anion Gap 7 BUN 8 Creatinine 0.69 Est GFR ( Amer) > 60 Est GFR (Non-Af Amer) > 60 Glucose 113 H Calcium 8.3 L Urine Color Urine Appearance Urine pH Ur Specific [place] Urine Protein Urine Glucose (UA) Urine Ketones Urine Blood Urine Nitrite Ur Leukocyte Esterase Urine WBC (Auto) Urine RBC (Auto) Blood Type Cancelled Antibody Screen Cancelled 05/08/19 05/08/19 19:07 20:25 WBC RBC Hgb Hct MCV MCH MCHC RDW Plt Count Seg Neutrophils % Lymphocytes % Monocytes % Eosinophils % Basophils % Absolute Neutrophils Absolute Lymphocytes Absolute Monocytes Absolute Eosinophils Absolute Basophils Sodium Potassium Chloride Carbon Dioxide Anion Gap BUN Creatinine Est GFR ( Amer) Est GFR (Non-Af Amer) Glucose Calcium Urine Color YELLOW Urine Appearance SLIGHTLY-CLOUDY Urine pH 6.0 Ur Specific [place] 1.015 Urine Protein 100 H Urine Glucose (UA) NEGATIVE Urine Ketones NEGATIVE Urine Blood SMALL H Urine Nitrite NEGATIVE Ur Leukocyte Esterase NEGATIVE Urine WBC (Auto) 5 Urine RBC (Auto) 23 Blood Type O POSITIVE Antibody Screen NEGATIVE Impressions: Abdomen/Pelvis CT 05/08/19 19:24 IMPRESSION: Postsurgical changes of left hemicolectomy with end colostomy. A small amount of extraluminal free air is noted about the low pelvis at the level of the mesorectal fat extending towards the perianal region. This is most likely related to an underlying ulcer about the perianal region or postsurgical in etiology. Additionally, the superimposed inflammatory stranding about the mesorectal fat and perirenal region presumably corresponds to phlegmon. No drainable fluid collection is identified about the low pelvis or perianal region. Splenomegaly. THIS REPORT CONTAINS FINDINGS THAT MAY BE CRITICAL TO PATIENT CARE: The findings were verbally discussed via telephone conference with Dr. CELESTE DEAL by Dr. Bejarano on 05/08/2019 8:34 PM CDT .The results were acknowledged and understood. TECHNICAL DOCUMENTATION: Quality ID # 436: Final reports with documentation of one or more dose reduction techniques (e.g., Automated exposure control, adjustment of the mA and/or kV according to patient size, use of iterative reconstruction technique) copyright 2010 [employer]- All Rights Reserved Assessment & Plan - Diagnosis (1) Surgical wound dehiscence Qualifiers: Encounter type: initial encounter Qualified Code(s): T81.31XA - Disruption of external operation (surgical) wound, not elsewhere classified, initial encounter Is this a current diagnosis for this admission?: Yes - Plan Summary Plan Summary: This is a 68-year-old female status post abdominoperineal resection for rectal cancer. The patient reports fatigue and weakness. She was evaluated by the emergency department. She has a CT scan of the abdomen and pelvis which I have reviewed. I believe her CT scan represents normal postsurgical changes. She has no obvious abscess or significant intra-abdominal process. The patient has a perineal wound that is open. It is draining purulent material. I have removed several more sutures and opened the wound. There is deep packing within the wound that I suspect has been there for many days. There are no tunneling fistulae. The musculature appears to be intact. I believe the patient can be cared for with local wound care alone. Per the emergency room physician the patient's physician at [facility] would like her transferred back to [place]. I have been asked to admit the patient to await a transfer bed. Dr. Caban the hospitalist was asked to perform this duty, however he refused to see the patient. I will initiate dressing changes with packing to the perineal wound 3 times daily. Start antibiotics. The patient should be out of bed with assistance. She should shower every day.
[2019-05-09] MEDS: HYDROCODONE/ACETAMINOPHEN 10-325 MG TABLET PO PRN ×2 (08:38→13:10)
[2019-05-09] MEDS: FAMOTIDINE 20 MG TABLET PO SCH ×2 (09:56→22:16)
[2019-05-09] MEDS: PIPERACILLIN SODIUM/TAZOBACTAM 3.375 GM in NORMAL SALINE 100 ML IV SCH ×2 (14:18→18:55)
[2019-05-09] MEDS ORDERED: CETIRIZINE 10 MG TABLET PO PRN (15:12)
[2019-05-09] MEDS ORDERED: BENZONATATE 100 MG CAPSULE PO PRN (15:12)
[2019-05-09] MEDS ORDERED: ALBUTEROL SULFATE HFA (90 MCG/PUFF) 200 PUFF/8.5 GM MDI IH PRN (15:12)
[2019-05-09] MEDS ORDERED: OXYCODONE HCL IR 5 MG TABLET PO PRN (15:12)
[2019-05-09] MEDS ORDERED: LORAZEPAM 1 MG TABLET PO PRN (15:12)
[2019-05-09] MEDS ORDERED: FENTANYL 25 MCG/HR PATCH.TD72 TD SCH (16:00)
[2019-05-09] MEDS ORDERED: DULOXETINE HCL 20 MG CAPSULE.DR PO SCH (16:30)
[2019-05-09] MEDS ORDERED: MAGNESIUM OXIDE 400 MG TABLET PO SCH (16:30)
[2019-05-09] MEDS ORDERED: POTASSIUM CHLORIDE 10 MEQ CAPSULE.ER PO SCH (16:30)
[2019-05-09] MEDS ORDERED: LIDOCAINE 5% (700 MG) TRANSDERMAL ADH..PATCH TP SCH (16:30)
[2019-05-09] MEDS ORDERED: CALCIUM CARBONATE 250 MG/VITAMIN D3 125 UNIT TABLET PO SCH (16:30)
[2019-05-09] MEDS ORDERED: METHOCARBAMOL 750 MG TABLET PO SCH (18:00)
[2019-05-09] MEDS ORDERED: GABAPENTIN 300 MG CAPSULE PO SCH (18:00)
[2019-05-09] MEDS ORDERED: PANTOPRAZOLE SODIUM 40 MG TABLET.DR PO SCH (18:00)
[2019-05-09] MEDS ORDERED: (PENDING PHARMACY ID) (Omeprazole Magnesium [Prilosec Otc] 40 MG) PO SCH (18:00)
--- NOTE | 2019-05-09 18:30 | TRANSFER SUMMARY E ---
Transfer Summary NAME: RNO CLAIRE : 1950 AGE: 68Y ADMITTED: 05/09/2019 TRANSFERRED: 05/09/2019 HISTORY OF PRESENT ILLNESS: The patient is a 68-year-old female who was admitted through the emergency room early this morning, status post abdominal peritoneal resection. She was seen in the emergency room here for weakness and failure to thrive. HOSPITAL COURSE: She was found to be anemic, with a hemoglobin of 8.6 and there was no evidence of any active bleeding. She was seen by the surgeon in the emergency room and consultation was made with her operating surgeon at [facility]. There were arrangements being made for the patient to be transferred to [facility]; however, there was no bed available. Since then, a bed has become available. While in the emergency room, her perineal wound was examined. It was noted to be slightly dehisced and it was cleansed and repacked. There was also noted to be a Duval catheter in place. CT scan was obtained, which only showed postsurgical changes from a left hemicolectomy with an end colostomy. There was a small amount of extraluminal free air that was noted low in the pelvis and some stranding of the mesorectal fat, most likely related to postsurgical etiology. There is no evidence of a drainable fluid collection that was identified. Patient has remained stable during her hospital course at this facility. Her repeat hemoglobin came back at 8. Again, there is no evidence of any active bleeding. Her operating surgeon, Dr. Helton, was notified and she has accepted the patient for transfer; therefore, the patient now will be transferred to [facility]. DICTATING PHYSICIAN: SCOT CHU M.D. [id number] PHY#: [id number] ID: [id number] JOB#: [id number] ACCT: [id number] cc:SCOT CHU M.D. >
[2019-05-09 20:59] VITALS: BP 132/72
[2019-05-09] MEDS ORDERED: MELATONIN 5 MG TABLET PO SCH (22:00)
[2019-05-09] MEDS ORDERED: OXYBUTYNIN CHLORIDE 5 MG TABLET PO SCH (22:00)
[2019-05-09] MEDS ORDERED: ZOLPIDEM TARTRATE 5 MG TABLET PO SCH (22:00)
[2019-05-09] MEDS ORDERED: (PENDING PHARMACY ID) (Eszopiclone [Lunesta] 2 MG) PO SCH (22:00)
[2019-05-10] MEDS ORDERED: CALCIUM CITRATE PO SCH (10:00)
[2019-05-10] MEDS ORDERED: VITAMIN D3 PO SCH (10:00)
== END 2019-05-09 23:15 | disposition short-term general hospital (02) ==
LOC: ER 17:39 → INTOOBSV 05-09 01:54 → EH 05-09 01:54 → 4S 05-09 12:40
PROVIDERS: ATTEND Surgery
DX: T81.31XA Disruption of external operation (surgical) wound, not elsewhere classified, initial encounter (principal); Y83.8 Other surgical procedures as the cause of abnormal reaction of the patient, or of later complication, without mention of misadventure at the time of the procedure; T81.49XA Infection following a procedure, other surgical site, initial encounter; L02.215 Cutaneous abscess of perineum; L76.82 Other postprocedural complications of skin and subcutaneous tissue; D50.0 Iron deficiency anemia secondary to blood loss (chronic); C20 Malignant neoplasm of rectum; R62.7 Adult failure to thrive; Z90.710 Acquired absence of both cervix and uterus; Z93.3 Colostomy status
CPT/HCPCS: 99284; 96374; 96375; 86900; 86901; 36415 ×2; 86850; 85025; 85027; 80048; 81001; 74177; G0378 ×2; A9270 ×12; J3010; J2270; J3490 ×3; J2405; J7050; J7030; J2543 ×2

== ENCOUNTER → 2019-09-17 | Outpatient (CLI) | payer MEDICARE, OTHER ==
--- NOTE | 2019-09-17 09:26 | RADIOLOGY REPORT (SQ) ---
EXAM DESCRIPTION: PELVIS AP COMPLETED DATE/TIME: 09/17/2019 9:17 am REASON FOR STUDY: NON-PRESSURE CHRONIC ULCER OF SKIN OF SITES W UNSP SEVERITY L98.499 NON-PRESSURE CHRONIC ULCER OF SKIN OF SITES W UNSP S COMPARISON: None. NUMBER OF VIEWS: One view TECHNIQUE: AP Pelvis LIMITATIONS: None. FINDINGS: MINERALIZATION: Normal. HIPS: No acute fracture or dislocation. No worrisome bone lesions. PELVIS AND SACRUM: No acute fracture or dislocation. No worrisome bone lesions. PUBIS AND ISCHIUM: No acute fracture. LOWER LUMBAR SPINE: No significant findings as visualized. SOFT TISSUES: No findings. OTHER: No conventional radiographic evidence of osteomyelitis. IMPRESSION: NEGATIVE STUDY OF THE PELVIS. COMMENT: Pelvic fractures are often occult on plain radiographs. If strong clinical suspicion for f racture, recommend CT or MR. TECHNICAL DOCUMENTATION: JOB ID: [id number] [employer]- All Rights Reserved Reading location - IP/workstation name: [email or web address]
== END ==
LOC: OD 09:01
PROVIDERS: ATTEND Plastic Surgery
DX: L98.499 Non-pressure chronic ulcer of skin of other sites with unspecified severity (principal)
CPT/HCPCS: 72170

== ENCOUNTER → 2019-12-08 | Outpatient (CLI) | payer MEDICARE, OTHER ==
--- NOTE | 2019-12-08 13:05 | RADIOLOGY REPORT (SQ) ---
EXAM DESCRIPTION: MRI LUMBAR SPINE WITHOUT COMPLETED DATE/TIME: 12/08/2019 10:04 am REASON FOR STUDY: M54.5 LOW BACK PAIN M54.5 LOW BACK PAIN COMPARISON: 11/17/2018 TECHNIQUE: Sagittal and Axial imaging includes T1, T2, STIR and gradient echo sequences. Coronal T2/ HASTE imaging. LIMITATIONS: None. FINDINGS: VISUALIZED UPPER ABDOMEN: Large T10 hemangioma. Stable. SEGMENTATION: No transitional anatomy. The lowest well-developed disc space is labeled L5-S1. ALIGNMENT: Minimal degenerative anterolisthesis L4 on L5 and L5 on S1. VERTEBRAE: Intact. BONE MARROW: Normal. No marrow replacement or reactive changes. DISC SIGNAL: Normal. No significant abnormal signal or loss of height. POSTERIOR ELEMENTS: Mild generalized loss of T2 signal. HARDWARE: None in the spine. CORD AND CONUS: Normal in size and signal intensity. Conus at the appropriate level. SOFT TISSUES: No aortic aneurysm seen. No bulky retroperitoneal adenopathy or mass. No paraspinal mas s or fluid. L1-L2: No significant spinal stenosis or exit foraminal stenosis. L2-L3: Disc bulge. Facet ligamentous hypertrophy. Mild narrowing of the exit foramina. L3-L4: Generalized disc bulge. Facet ligamentous hypertrophy. Mild narrowing of the exit foramina a nd central canal stenosis. L4-L5: Generalized disc bulge. Facet overgrowth. Mild narrowing of the exit foramina. L5-S1: No significant spinal stenosis or exit foraminal stenosis. LOWER THORACIC: Incompletely imaged. No stenosis seen. SACRUM: Visualized upper sacrum intact. OTHER: No other significant findings. IMPRESSION: Stable spondylosis. No acute fractures. No evidence for metastatic disease. TECHNICAL DOCUMENTATION: JOB ID: [id number] [employer]- All Rights Reserved Reading location - IP/workstation name: [email or web address]
== END ==
LOC: RAD 08:03
PROVIDERS: ATTEND Physician Assistant
DX: M54.5 Low back pain (principal)
CPT/HCPCS: 72148

== ENCOUNTER 2020-03-10 09:54 | Inpatient (IN) | payer MEDICARE, OTHER ==
[2020-03-10] MEDS ORDERED: NORMAL SALINE 1000 ML 1,000 ML IV ONE (10:34)
[2020-03-10] MEDS ORDERED: LEVETIRACETAM 1000 MG/NACL-ISO 1,000 MG/100 ML RTUPB IV ONE (10:35)
[2020-03-10 10:49] LABS: ABSOLUTE BASOPHILS # (AUTO) 0.1 10^3/uL (0.0-0.2); ABSOLUTE EOSINOPHILS # (AUTO) 0.2 10^3/uL (0.0-0.6); ABSOLUTE MONOCYTES (AUTO) 0.4 10^3/uL (0.1-1.4); BASOPHILS % (AUTO) 0.9 % (0-2); EOSINOPHILS % (AUTO) 2.5 % (0-6); HEMATOCRIT 37.2 % (36.0-47.0); HEMOGLOBIN 12.5 g/dL (12.0-15.5); LYMPHOCYTES % (AUTO) 11.9 % (13-45); MEAN CORPUSCULAR HEMOGLOBIN 28.1 pg (27.0-33.4); MEAN CORPUSCULAR HGB CONC 33.6 g/dL (32.0-36.0); MEAN CORPUSCULAR VOLUME 84 fl (80-97); MONOCYTES % (AUTO) 4.8 % (3-13); PLATELET COUNT 199 10^3/uL (150-450); RED BLOOD COUNT 4.45 10^6/uL (3.72-5.28); SEGMENTED NEUTROPHILS % (AUTO) 79.9 % (42-78); TOTAL CELLS COUNTED % (AUTO) 100 %; WHITE BLOOD COUNT 8.8 10^3/uL (4.0-10.5)
[2020-03-10 11:08] LABS: ALBUMIN 3.6 g/dL (3.5-5.0); ALKALINE PHOSPHATASE 138 U/L (38-126); ANION GAP 9 (5-19); ASPARTATE AMINO TRANSFERASE 33 U/L (14-36); BILIRUBIN,TOTAL 0.4 mg/dL (0.2-1.3); BLOOD UREA NITROGEN 16 mg/dL (7-20); CALCIUM 8.5 mg/dL (8.4-10.2); CARBON DIOXIDE 23 mmol/L (22-30); CHLORIDE 104 mmol/L (98-107); GLUCOSE 159 mg/dL (75-110); POTASSIUM 4.5 mmol/L (3.6-5.0); TOTAL PROTEIN 6.4 g/dL (6.3-8.2)
[2020-03-10 11:11] LABS: APPEARANCE,URINE CLOUDY; BILIRUBIN,URINE NEGATIVE (NEGATIVE); COLOR,URINE YELLOW; GLUCOSE, URINE NEGATIVE (NEGATIVE); KETONES,URINE NEGATIVE (NEGATIVE); PROTEIN,URINE NEGATIVE (NEGATIVE); URINE SPECIFIC GRAVITY 1.013; UROBILINOGEN,URINE NEGATIVE mg/dL (<2.0)
--- NOTE | 2020-03-10 11:38 | ER Document Report ---
ED General - General Chief Complaint: Probable Seizure Stated Complaint: POSSIBLE SEIZURE Time Seen by Provider: 03/10/20 10:16 Primary Care Provider: ROSENDO LOCKWOOD MD [Primary Care Provider] - Follow up as needed Mode of Arrival: Medic Information source: Patient TRAVEL OUTSIDE OF THE [place] IN LAST 30 DAYS: No - HPI Notes: Patient presents after a seizure. Patient was in the hyperbaric chamber and wound clinic when she had an approximately 2 to 3-minute full body tonic-clonic seizure. Patient has no recall of the events. However she is currently alert and oriented and can contribute to the history. She states that she has a history of colon cancer with a recent resection. She has been undergoing wound therapy treatment for the postoperative wound. She currently denies any pain or problems. She does state she feels somewhat weak. This weakness is diffuse. It is constant. Nothing makes it better or worse. It appears to be mild to moderate. She denies any recent cough cold or congestion. No recent vomiting. No previous history of seizures. - Related Data Allergies/Adverse Reactions: No Known Allergies Allergy (Verified 10/05/18 12:11) Past Medical History - General Information source: Patient - Social History Smoking Status: Never Smoker Frequency of alcohol use: None Drug Abuse: None Family History: Reviewed & Not Pertinent Patient has homicidal ideation: No Neurological Medical History: Reports: Hx Migraine Renal/ Medical History: Denies: Hx Peritoneal Dialysis GI Medical History: Reports: Hx Gastroesophageal Reflux Disease Musculoskeletal Medical History: Reports Hx Arthritis Past Surgical History: Reports: Hx Section, Hx Hysterectomy, Hx Orthopedic Surgery - bilateral knees; right arm; spinal fusions, Hx Rectal Surgery - colostomy, Other - Abdominoperineal resection for cancer - Immunizations Hx Diphtheria, Pertussis, Tetanus Vaccination: No Review of Systems - Review of Systems Constitutional: denies: Chills, Fever Cardiovascular: denies: Chest pain, Palpitations Respiratory: denies: Cough, Short of breath -: Yes All other systems reviewed and negative Physical Exam - Vital signs Vitals: Temp Pulse Resp BP Pulse Ox 98.2 F 90 16 142/70 H 90 L 03/10/20 09:54 03/10/20 09:54 03/10/20 09:54 03/10/20 09:54 03/10/20 09:54 Interpretation: Normal - General General appearance: Appears well, Alert In distress: None - HEENT Head: Normocephalic, Atraumatic Eyes: Normal Pupils: PERRL - Respiratory Respiratory status: No respiratory distress Chest status: Nontender Breath sounds: Normal Chest palpation: Normal - Cardiovascular Rhythm: Regular Heart sounds: Normal auscultation Murmur: No - Abdominal Inspection: Normal, Obese, Other - Colostomy bag in place Distension: No distension Bowel sounds: Normal Tenderness: Nontender Organomegaly: No organomegaly - Rectal Notes: Patient has had her rectum surgically removed. She currently has a wound in this area with an adherent bandage. No surrounding evidence of infection. - Back Back: Normal, Nontender - Extremities General upper extremity: Normal inspection, Nontender, Normal color, Normal ROM, Normal temperature General lower extremity: Normal inspection, Nontender, Normal color, Normal ROM, Normal temperature, Normal weight bearing. No: Karen's sign - Neurological Neuro grossly intact: Yes Cognition: Normal Orientation: AAOx4 [place] Coma Scale Eye Opening: Spontaneous [place] Coma Scale Verbal: Oriented Cecille Coma Scale Motor: Obeys Commands [place] Coma Scale Total: 15 Speech: Normal Motor strength normal: LUE, RUE, LLE, RLE Sensory: Normal - Psychological Associated symptoms: Normal affect, Normal mood - Skin Skin Temperature: Warm Skin Moisture: Dry Skin Color: Normal Course - Re-evaluation Re-evalutation: 03/10/20 12:59 Patient presents with new onset seizure. This possibly was secondary to hyperbaric treatment. There is no evidence that it was due to metastatic disease as head CT is unremarkable. There is some questionable thickening of the falx it could show a small subdural so an MRI will be obtained to further delineate this. I did discuss the case with neurology at [facility]. They state that just 1 dose of Keppra should be sufficient. They do recommend treating the urinary tract infection with Rocephin to the blood cultures come back. Patient does have a chronic indwelling Duval which makes interpretation of the urine somewhat difficult but it seems most prudent to continue antibiotics until blood cultures return in 2 days. - Vital Signs Vital signs: Temp Pulse Resp BP Pulse Ox 98.2 F 90 16 104/54 L 98 03/10/20 10:13 03/10/20 09:54 03/10/20 12:00 03/10/20 12:00 03/10/20 12:00 - Laboratory Result Diagrams: 03/10/20 10:41 03/10/20 10:41 Laboratory results interpreted by me: 03/10/20 03/10/20 03/10/20 10:41 10:41 10:54 RDW 16.0 H Lymph % (Auto) 11.9 L Seg Neutrophils % 79.9 H Sodium 135.8 L Glucose 159 H Alkaline Phosphatase 138 H Urine Blood MODERATE H Leukocyte Esterase Rfl LARGE H - Diagnostic Test Radiology reviewed: Image reviewed, Reports reviewed Discharge - Discharge Clinical Impression: Seizure Colon cancer Qualifiers: Colon location: unspecified part of colon Qualified Code(s): C18.9 - Malignant neoplasm of colon, unspecified Condition: Serious Disposition: ADMITTED INPATIENT Admitting Provider: Maritza (Hospitalist) Unit Admitted: Medical Floor Referrals: ROSENDO LOCKWOOD MD [Primary Care Provider] - Follow up as needed
--- NOTE | 2020-03-10 12:04 | RADIOLOGY REPORT (SQ) ---
EXAM DESCRIPTION: CT HEAD WITHOUT IMAGES COMPLETED DATE/TIME: 03/10/2020 11:31 am REASON FOR STUDY: seizure/hx cancer COMPARISON: CT of the head without contrast from 10/05/2018. TECHNIQUE: Axial images acquired through the brain without intravenous contrast. Images reviewed wi th bone, brain and subdural windows. Images stored on PACS. All CT scanners at this facility use dose modulation, iterative reconstruction, and/or weight based d osing when appropriate to reduce radiation dose to as low as reasonably achievable (ALARA). [facility]: Dose Right [facility]: CareDose [facility]: Dose Right [facility]: Teradose 4D [facility]: Smart Worlds RADIATION DOSE: CT Rad equipment meets quality standard of care and radiation dose reduction techniq ues were employed. CTDIvol: 53.2 mGy. DLP: 1124 mGy-cm. LIMITATIONS: None. FINDINGS: Status post occipital craniotomy. There is a chronic area encephalomalacia and gliosis in the left occipital lobe. On the coronal reformats there is suspected 3 mm subdural hematoma along the right paramedian falx ce rebri. There is no associated mass effect or vasogenic edema. The adan-white matter differentiation i outside the area encephalomalacia is preserved. There is no effacement of the basal subarachnoid cisterns. The orbits and globes are intact. The paranasal sinuses are clear. IMPRESSION: Hyperdense thickening of the right paramedian falx cerebri (image 53 of series 401) coul d represent a subdural hematoma. EVIDENCE OF ACUTE STROKE: NO. COMMENT: This report was called to FELIX MURILLO MD at11:56 on 03/10/2020. Quality ID # [id number]: Final reports with documentation of one or more dose reduction techniques (e.g., Au tomated exposure control, adjustment of the mA and/or kV according to patient size, use of iterative reconstruction technique) TECHNICAL DOCUMENTATION: JOB ID: [id number] 2010 [employer]- All Rights Reserved Reading location - IP/workstation name: [email or web address]
[2020-03-10] MEDS ORDERED: CEFTRIAXONE 1 GM/D5W RTU 1 GM/50 ML RTUPB IV ONE (12:35)
--- NOTE | 2020-03-10 14:49 | RADIOLOGY REPORT (SQ) ---
EXAM DESCRIPTION: MRI HEAD COMBO IMAGES COMPLETED DATE/TIME: 03/10/2020 2:36 pm REASON FOR STUDY: seizure COMPARISON: CT brain 10/05/2018, 03/10/2020 TECHNIQUE: Multiplanar imaging includes noncontrasted T1, T2, FLAIR, diffusion with ADC map and post gadolinium contrast T1 sequences. Images stored on PACS. CONTRAST TYPE AND DOSE: 20 mL Dotarem. RENAL FUNCTION: Not indicated. ACR Type II contrast agent associated with few, if any, unconfounded cases of NSF LIMITATIONS: Mild motion artifact on the post contrasted images FINDINGS: ANATOMY: No anomalies. Normal vascular flow voids. Pituitary fossa normal. CSF SPACES: Normal in size and contour. No hemorrhage. CEREBRUM: Sulci and gyri normal in size and contour. Age-appropriate minimal spotty increased white matter signal on FLAIR imaging from chronic small vessel disease. No evidence of hemorrhage, mass, or extraaxial fluid collection. No abnormal enhancement post contrast. POSTERIOR FOSSA: No signal alteration. No hemorrhage. No edema, masses, or mass effect. Internal moo tory canals, cerebellopontine angles, mastoids normal. No enhancing lesions. No abnormal enhancement post contrast. DIFFUSION IMAGING: Negative for acute or subacute infarction. ORBITS: No masses. Globes normal. PARANASAL SINUSES: Right mastoid air cells and middle ear cavity are opacified with fluid. Paranasal sinuses, left mastoid clear OTHER: No other significant finding. IMPRESSION: No acute intracranial changes. Fluid in the right mastoid and middle ear cavity. EVIDENCE OF ACUTE STROKE: NO. TECHNICAL DOCUMENTATION: JOB ID: [id number] 2010 [employer]- All Rights Reserved Reading location - IP/workstation name: [id number]
[2020-03-10] MEDS ORDERED: (PENDING PHARMACY ID) (Albuterol Sulfate 2 PUFF) IH PRN (15:07)
[2020-03-10] MEDS ORDERED: PROMETHAZINE HCL 25 MG TABLET PO PRN (15:07)
[2020-03-10] MEDS ORDERED: (PENDING PHARMACY ID) (Oxycodone Hcl [Oxycodone Hcl] 5 MG) PO PRN (15:07)
[2020-03-10] MEDS ORDERED: TEMAZEPAM 15 MG CAPSULE PO PRN (15:08)
[2020-03-10] MEDS ORDERED: ONDANSETRON HCL INJ/PF 4 MG/2 ML SDV IV PRN (15:08)
[2020-03-10] MEDS ORDERED: OXYCODONE-ACETAMINOPHEN 5-325 MG TABLET PO PRN (15:08)
[2020-03-10] MEDS ORDERED: ACETAMINOPHEN 325 MG TABLET PO PRN (15:08)
[2020-03-10] MEDS ORDERED: MORPHINE SULFATE 10 MG/ML INJ IV ONE (15:08)
[2020-03-10] MEDS ORDERED: OXYCODONE HCL IR 5 MG TABLET PO PRN ×2 (15:10→15:30)
[2020-03-10] MEDS ORDERED: ALBUTEROL SULFATE HFA (90 MCG/PUFF) 200 PUFF/8.5 GM MDI IH PRN (15:13)
[2020-03-10] MEDS: NORMAL SALINE 1000 ML 1,000 ML IV PRN (15:31)
--- NOTE | 2020-03-10 15:31 | PDOC H&P ---
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 The work-up in the emergency room is negative. Only abnormality is UTI the ER physician spoke to neurologist in [place] his impression is seizure activity may be secondary to UTI. CT head shows subdural hematoma and MRI of the brain with contrast did not show any acute pathology except for previous history of craniotomy. Patient agreed to stay in the hospital overnight patient was given a loading dose of Keppra in the ER. At the time of my examination alert awake oriented communicating well complaining of pain in the back bones. 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 Hematology: Reports: Anemia Past Surgical History Past Surgical History: Reports: Section, Hysterectomy, Orthopedic Surgery - bilateral knees; right arm; spinal fusions, Other - Abdominoperineal resection for cancer Social History Information Source: Patient Smoking Status: Never Smoker Electronic Cigarette use?: No Hx Recreational Drug Use: No Drugs: None Hx Prescription Drug Abuse: No - Advance Directive Resuscitation Status: Full Code Family History Family History: Reviewed & Not Pertinent Parental Family History Reviewed: Yes - History of hypertension and heart disease Children Family History Reviewed: Yes Sibling(s) Family History Reviewed.: Yes Medication/Allergy Home Medications: Albuterol Sulfate [Proair Hfa Inhalation Aerosol 8.5 gm Mdi] 2 puff IH Q6HP PRN 05/09/19 Gabapentin [Neurontin 300 mg Capsule] 600 mg PO TID 05/09/19 Methocarbamol [Robaxin 750 mg Tablet] 750 mg PO QID 05/09/19 Omeprazole Magnesium [Prilosec Otc] 20 mg PO DAILY 05/09/19 Oxycodone HCl 5 mg PO Q4HP PRN 05/09/19 Butalb/Acetaminophen/Caffeine [Fioricet (50-325-40 mg) Tablet] 1 tab PO Q6HP PRN 03/10/20 Diphenhydramine HCl [Benadryl 50 mg Capsule] 50 mg PO QHS 03/10/20 Oxycodone HCl [Oxy-Ir 5 mg Tablet] 10 mg PO BID 03/10/20 Promethazine HCl [Phenergan 25 mg Tablet] 25 mg PO Q6HP PRN 03/10/20 Allergies/Adverse Reactions: No Known Allergies Allergy (Verified 10/05/18 12:11) Review of Systems Constitutional: ABSENT: fatigue, fever(s), night sweats, weakness Eyes: ABSENT: visual disturbances Ears: ABSENT: hearing changes Nose, Mouth, and Throat: ABSENT: sore throat Cardiovascular: ABSENT: dyspnea on exertion, orthropnea Respiratory: ABSENT: hemoptysis Gastrointestinal: ABSENT: abdominal pain, bloating, coffee ground emesis, diarr hea Genitourinary: ABSENT: dysuria, hematuria Musculoskeletal: ABSENT: deformity Integumentary: PRESENT: other - Nonhealing wound in the tailbone area which is packed. Neurological: PRESENT: other - Patient had a new onset seizure with loss of consciousness. Psychiatric: ABSENT: anxiety, depression, homidical ideation, suicidal ideation Physical Exam Vital Signs: Temp Pulse Resp BP Pulse Ox 98.2 F 90 18 107/49 L 98 03/10/20 10:13 03/10/20 09:54 03/10/20 13:00 03/10/20 13:00 03/10/20 13:00 Intake & Output 03/09/20 03/10/20 03/11/20 06:59 06:59 06:59 Intake Total 1150 Balance 1150 Weight 100.9 kg General appearance: PRESENT: mild distress, obese Head exam: PRESENT: atraumatic Eye exam: PRESENT: PERRLA Mouth exam: PRESENT: moist, tongue midline Teeth exam: PRESENT: poor dentation Neck exam: ABSENT: carotid bruit, JVD, lymphadenopathy, thyromegaly Respiratory exam: PRESENT: decreased breath sounds Cardiovascular exam: PRESENT: RRR. ABSENT: diastolic murmur, rubs, systolic murmur GI/Abdominal exam: PRESENT: other Rectal exam: PRESENT: deferred Extremities exam: PRESENT: full ROM. ABSENT: calf tenderness, clubbing, pedal edema Neurological exam: PRESENT: alert, awake, oriented to person, oriented to place, oriented to time, oriented to situation, CN II-XII grossly intact. ABSENT: motor sensory deficit Skin exam: PRESENT: other - Has a nontender wound on the tailbone area which is packed. Results Laboratory Results: 03/10/20 10:41 03/10/20 10:41 03/10/20 03/10/20 03/10/20 10:41 10:41 10:54 WBC 8.8 RBC 4.45 Hgb 12.5 Hct 37.2 MCV 84 MCH 28.1 MCHC 33.6 RDW 16.0 H Plt Count 199 Seg Neutrophils % 79.9 H Sodium 135.8 L Potassium 4.5 Chloride 104 Carbon Dioxide 23 Anion Gap 9 BUN 16 Creatinine 0.72 Est GFR ( Amer) > 60 Glucose 159 H Calcium 8.5 Total Bilirubin 0.4 AST 33 Alkaline Phosphatase 138 H Total Protein 6.4 Albumin 3.6 Urine Color YELLOW Urine Appearance CLOUDY Urine pH 5.0 Ur Specific [place] 1.013 Urine Protein NEGATIVE Urine Glucose (UA) NEGATIVE Urine Ketones NEGATIVE Urine Blood MODERATE H Urine RBC (Auto) 39 Impressions: Head CT 03/10/20 10:35 IMPRESSION: Hyperdense thickening of the right paramedian falx cerebri (image 53 of series 401) could represent a subdural hematoma. EVIDENCE OF ACUTE STROKE: NO. Head MRI 03/10/20 13:05 IMPRESSION: No acute intracranial changes. Fluid in the right mastoid and middle ear cavity. EVIDENCE OF ACUTE STROKE: NO. Assessment and Plan - Diagnosis (1) Seizure Is this a current diagnosis for this admission?: Yes Plan: 03/10/2020 patient is going to be admitted to the [facility] as patient with a diagnosis of new onset seizure. Patient was given Keppra in the emergency room. As per the neurology recommendations no further Keppra is initiated. Aspiration fall seizure precautions are requested. Prophylaxis DVT prophylaxis initiated. (2) Surgical wound dehiscence Qualifiers: Encounter type: initial encounter Qualified Code(s): T81.31XA - Disruption of external operation (surgical) wound, not elsewhere classified, initial encounter Is this a current diagnosis for this admission?: No Plan: 03/10/2020 patient has nonhealing tunnel wound in the tailbone area and surgical consult was requested wound care consult was requested. (3) Colon cancer Is this a current diagnosis for this admission?: No Plan: 03/10/2020-patient has history of colon cancer status post colon resection with colostomy bag. Oncology follow-up will be requested. (4) UTI (urinary tract infection) Is this a current diagnosis for this admission?: Yes Plan: 03/10/2020 urinalysis abnormal she received 1 g of IV Rocephin to start her on a Cipro floxacillin 5 mg p.o. twice daily.
[2020-03-10] MEDS: FAMOTIDINE 20 MG TABLET PO SCH ×2 (15:48→22:05)
[2020-03-10] MEDS: OXYCODONE HCL IR 5 MG TABLET PO SCH (18:01)
[2020-03-10] MEDS: DOCUSATE SODIUM 100 MG CAPSULE PO SCH (18:02)
[2020-03-10] MEDS: GABAPENTIN 300 MG CAPSULE PO SCH (18:02)
[2020-03-10] MEDS: METHOCARBAMOL 750 MG TABLET PO SCH ×2 (18:05→22:06)
--- NOTE | 2020-03-10 19:01 | PDOC CONSULTATION ---
Consultation Consult Date: 03/10/20 Provider Consulted: WILNER ROSA Consult reason:: Hematology/Oncology consultation was requested for patient with colorectal cancer and new onset seizure. History of Present Illness Admission Date/PCP: 03/10/20 13:28 ROSENDO LOCKWOOD MD History of Present Illness: Due to COVID-19 restrictions, I was not able to examine the patient. However, chart was reviewed and I discussed her care with Emergency physicians, as well as hospitalists. RON CLAIRE is a 69 year old female with stage III rectal cancer, she was originally diagnosed in 2018, she had chemotherapy with FOLFOX followed by concurrent chemoradiation all neoadjuvant. She completed all that therapy in 01/2019. Thereafter she underwent surgery at [facility], she underwent robotic combined abdominal perineal resection with end colostomy, proctectomy, omental flap. Final stage after surgery was T2 N1 M0. Unfortunately, after surgery she had breakdown of the wound area, and the plastic surgery site, and ultimately had Wound VAC placed. She recently has been enrolled into the local wound care clinic, in that area seems to slowly improving. She does have fatigue, and every time the area gets changed, she has bleeding. Unfortunately she is poorly tolerant of oral iron. Patient reportedly had a seizure while in the hyperbaric oxygen chamber today at wound care. She has no known history of seizures. In the ED, she was given Keppra and found to have a UTI. According to the ED physician, neurology did not recommend that patient be placed on Keppra long-term. CT and MRI of the brain were negative. She is now on antibiotics and has been admitted for further observation and treatment. 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 Psychiatric Medical History: Reports: General Anxiety Disorder Denies: Depression Hematology: Reports: Anemia Past Surgical History Past Surgical History: Reports: Section, Hysterectomy, Orthopedic Surgery - bilateral knees; right arm; spinal fusions, Other - Abdominoperineal resection for cancer Social History Smoking Status: Never Smoker Electronic Cigarette use?: No Frequency of Alcohol Use: None Hx Recreational Drug Use: No Drugs: None Hx Prescription Drug Abuse: No - Advance Directive Resuscitation Status: Full Code Family History Parental Family History Reviewed: Yes - Mother of [place]. Children Family History Reviewed: No Sibling(s) Family History Reviewed.: Yes - Sister with breast cancer Medication/Allergy Home Medications: Albuterol Sulfate [Proair Hfa Inhalation Aerosol 8.5 gm Mdi] 2 puff IH Q6HP PRN 05/09/19 Gabapentin [Neurontin 300 mg Capsule] 600 mg PO TID 05/09/19 Methocarbamol [Robaxin 750 mg Tablet] 750 mg PO QID 05/09/19 Omeprazole Magnesium [Prilosec Otc] 20 mg PO DAILY 05/09/19 Oxycodone HCl 5 mg PO Q4HP PRN 05/09/19 Butalb/Acetaminophen/Caffeine [Fioricet (50-325-40 mg) Tablet] 1 tab PO Q6HP PRN 03/10/20 Diphenhydramine HCl [Benadryl 50 mg Capsule] 50 mg PO QHS 03/10/20 Oxycodone HCl [Oxy-Ir 5 mg Tablet] 10 mg PO BID 03/10/20 Promethazine HCl [Phenergan 25 mg Tablet] 25 mg PO Q6HP PRN 03/10/20 Allergies/Adverse Reactions: No Known Allergies Allergy (Verified 10/05/18 12:11) Review of Systems Review of Systems: I was not able to speak directly to the patient, so ROS was not obtained. Physical Exam Vital Signs: Temp Pulse Resp BP Pulse Ox 98.2 F 72 12 115/59 L 100 03/10/20 17:41 03/10/20 17:41 03/10/20 17:41 03/10/20 17:41 03/10/20 17:41 Intake & Output 03/09/20 03/10/20 03/11/20 06:59 06:59 06:59 Intake Total 1150 Balance 1150 Weight 100.9 kg Exam: Due to COVID-19 restrictions, full exam was not obtained. Results Laboratory Results: 03/10/20 10:41 03/10/20 10:41 03/10/20 03/10/20 03/10/20 10:41 10:41 10:54 WBC 8.8 RBC 4.45 Hgb 12.5 Hct 37.2 MCV 84 MCH 28.1 MCHC 33.6 RDW 16.0 H Plt Count 199 Seg Neutrophils % 79.9 H Sodium 135.8 L Potassium 4.5 Chloride 104 Carbon Dioxide 23 Anion Gap 9 BUN 16 Creatinine 0.72 Est GFR ( Amer) > 60 Glucose 159 H Calcium 8.5 Total Bilirubin 0.4 AST 33 Alkaline Phosphatase 138 H Total Protein 6.4 Albumin 3.6 Urine Color YELLOW Urine Appearance CLOUDY Urine pH 5.0 Ur Specific [place] 1.013 Urine Protein NEGATIVE Urine Glucose (UA) NEGATIVE Urine Ketones NEGATIVE Urine Blood MODERATE H Urine RBC (Auto) 39 Impressions: Head CT 03/10/20 10:35 IMPRESSION: Hyperdense thickening of the right paramedian falx cerebri (image 53 of series 401) could represent a subdural hematoma. EVIDENCE OF ACUTE STROKE: NO. Head MRI 03/10/20 13:05 IMPRESSION: No acute intracranial changes. Fluid in the right mastoid and middle ear cavity. EVIDENCE OF ACUTE STROKE: NO. Status: Image reviewed by me Assessment & Plan - Diagnosis (1) Colon cancer Qualifiers: Colon location: sigmoid Qualified Code(s): C18.7 - Malignant neoplasm of s igmoid colon Is this a current diagnosis for this admission?: No Plan: She has completed all planned treatment of her Stage III rectal cancer. Awaiting surgical wound healing. There is currently no evidence of recurent disease. She is scheduled to follow-up March 23 in the office for further follow- up. (2) Seizure Is this a current diagnosis for this admission?: Yes Plan: No evidence of brain mets. I agree with neurologist that Keppra may not be necessary in this situation long-term. Will defer decision to hospitalist. Watch for further evidence of seizure. However, this could have been brought on by the UTI. (3) UTI (urinary tract infection) Qualifiers: Urinary tract infection type: catheter-associated UTI Is this a current diagnosis for this admission?: Yes Plan: She is currently receiving appropriate antibiotics. Await blood cultures. (4) Anemia Qualifiers: Anemia type: iron deficiency Iron deficiency anemia type: chronic blood loss Qualified Code(s): D50.0 - Iron deficiency anemia secondary to blood loss (chronic) Is this a current diagnosis for this admission?: No Plan: She is currently undergoing B12 injections. There is no evidence of anemia of bleeding currently. Will follow-up as outpatient. (5) Surgical wound dehiscence Qualifiers: Encounter type: initial encounter Qualified Code(s): T81.31XA - Disruption of external operation (surgical) wound, not elsewhere classified, initial encounter Is this a current diagnosis for this admission?: No
[2020-03-10] MEDS ORDERED: DIPHENHYDRAMINE HCL 50 MG CAPSULE PO SCH (22:00)
[2020-03-10] MEDS: CIPROFLOXACIN HCL 500 MG TABLET PO SCH (22:06)
[2020-03-10] MEDS: BUTALB/ACETAMINOPHEN/CAFFEINE 1 TAB EACH PO PRN (22:11)
[2020-03-11] MEDS: NORMAL SALINE 1000 ML 1,000 ML IV PRN (03:12)
[2020-03-11 06:14] LABS: ABSOLUTE EOSINOPHILS # (AUTO) 0.2 10^3/uL (0.0-0.6); ABSOLUTE LYMPHOCYTES (AUTO) 0.9 10^3/uL (0.5-4.7); ABSOLUTE MONOCYTES (AUTO) 0.6 10^3/uL (0.1-1.4); ABSOLUTE NEUT (AUTO) 5.7 10^3/uL (1.7-8.2); BASOPHILS % (AUTO) 0.3 % (0-2); EOSINOPHILS % (AUTO) 2.3 % (0-6); HEMATOCRIT 31.1 % (36.0-47.0); HEMOGLOBIN 10.9 g/dL (12.0-15.5); LYMPHOCYTES % (AUTO) 11.9 % (13-45); MEAN CORPUSCULAR HEMOGLOBIN 28.7 pg (27.0-33.4); MEAN CORPUSCULAR VOLUME 82 fl (80-97); MONOCYTES % (AUTO) 7.6 % (3-13); PLATELET COUNT 158 10^3/uL (150-450); RED BLOOD COUNT 3.78 10^6/uL (3.72-5.28); RED CELL DISTRIBUTION WIDTH 16.2 % (11.5-14.0); SEGMENTED NEUTROPHILS % (AUTO) 77.9 % (42-78); TOTAL CELLS COUNTED % (AUTO) 100 %; WHITE BLOOD COUNT 7.3 10^3/uL (4.0-10.5)
[2020-03-11 06:23] LABS: INTERNATIONAL RATION (INR) 1.13; PROTHROMBIN TIME 14.6 SEC (11.4-15.4)
[2020-03-11 06:32] LABS: ALBUMIN 2.9 g/dL (3.5-5.0); ALKALINE PHOSPHATASE 119 U/L (38-126); ANION GAP 5 (5-19); ASPARTATE AMINO TRANSFERASE 25 U/L (14-36); BILIRUBIN,TOTAL 0.4 mg/dL (0.2-1.3); BLOOD UREA NITROGEN 14 mg/dL (7-20); CALCIUM 8.3 mg/dL (8.4-10.2); CARBON DIOXIDE 24 mmol/L (22-30); CHLORIDE 108 mmol/L (98-107); CREATINE KINASE 45 U/L (30-135); GLUCOSE 95 mg/dL (75-110); POTASSIUM 4.5 mmol/L (3.6-5.0); TOTAL PROTEIN 5.5 g/dL (6.3-8.2)
--- NOTE | 2020-03-11 07:31 | PDOC CONSULTATION ---
Consultation Consult Date: 03/11/20 Provider Consulted: SURGICAL SURGICALIST Consult reason:: Sacral decubitus ulcer History of Present Illness Admission Date/PCP: 03/10/20 13:28 ROSENDO LOCKWOOD MD History of Present Illness: RON CLAIRE is a 69 year old female seen in consultation at the request of the hospitalist service. The patient has a longstanding sacral decubitus ulcer. It is cared for by the wound care clinic. She sees Dr. Johns. She is undergoing hyperbaric oxygen therapy. She denies any pain in her sacrum, drainage, or foul smell. She also denies chest pain, shortness of breath, fevers, chills, nausea, vomiting, melena, hematochezia, hematemesis, blurry vision, orthostasis, headache. The wound was debrided several days ago at the wound care clinic. 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 Psychiatric Medical History: Reports: General Anxiety Disorder Denies: Depression Hematology: Reports: Anemia Past Surgical History Past Surgical History: Reports: Section, Hysterectomy, Orthopedic Surgery - bilateral knees; right arm; spinal fusions, Other - Abdominoperineal resection for cancer Social History Smoking Status: Never Smoker Electronic Cigarette use?: No Frequency of Alcohol Use: None Hx Recreational Drug Use: No Drugs: None Hx Prescription Drug Abuse: No - Advance Directive Resuscitation Status: Full Code Family History Family History: Reviewed & Not Pertinent Parental Family History Reviewed: Yes Children Family History Reviewed: Yes Sibling(s) Family History Reviewed.: Yes Medication/Allergy Home Medications: Albuterol Sulfate [Proair Hfa Inhalation Aerosol 8.5 gm Mdi] 2 puff IH Q6HP PRN 05/09/19 Gabapentin [Neurontin 300 mg Capsule] 600 mg PO TID 05/09/19 Methocarbamol [Robaxin 750 mg Tablet] 750 mg PO QID 05/09/19 Omeprazole Magnesium [Prilosec Otc] 20 mg PO DAILY 05/09/19 Oxycodone HCl 5 mg PO Q4HP PRN 05/09/19 Butalb/Acetaminophen/Caffeine [Fioricet (50-325-40 mg) Tablet] 1 tab PO Q6HP PRN 03/10/20 Diphenhydramine HCl [Benadryl 50 mg Capsule] 50 mg PO QHS 03/10/20 Oxycodone HCl [Oxy-Ir 5 mg Tablet] 10 mg PO BID 03/10/20 Promethazine HCl [Phenergan 25 mg Tablet] 25 mg PO Q6HP PRN 03/10/20 Allergies/Adverse Reactions: No Known Allergies Allergy (Verified 10/05/18 12:11) Review of Systems Constitutional: ABSENT: anorexia, chills, fatigue, fever(s), weakness Eyes: ABSENT: visual disturbances Ears: ABSENT: hearing changes Nose, Mouth, and Throat: ABSENT: sore throat Cardiovascular: ABSENT: chest pain Respiratory: ABSENT: cough, dyspnea Gastrointestinal: ABSENT: hematemesis, hematochezia, melena, nausea, vomiting Genitourinary: ABSENT: dysuria Musculoskeletal: ABSENT: back pain Integumentary: PRESENT: wounds - Sacral decubitus ulcer Neurological: ABSENT: confusion, dizziness Psychiatric: ABSENT: anxiety, depression Endocrine: ABSENT: cold intolerance Hematologic/Lymphatic: ABSENT: easy bleeding, easy bruising Physical Exam Vital Signs: Temp Pulse Resp BP Pulse Ox 98.7 F 69 18 100/33 L 90 L 03/11/20 03:07 03/11/20 06:50 03/11/20 03:07 03/11/20 03:07 03/11/20 03:07 Intake & Output 03/10/20 03/11/20 03/12/20 06:59 06:59 06:59 Intake Total 2025 Output Total 900 Balance 1126 Weight 100.9 kg General appearance: PRESENT: no acute distress, cooperative, obese Head exam: PRESENT: atraumatic Eye exam: PRESENT: EOMI, PERRLA Mouth exam: PRESENT: moist, neck supple Neck exam: ABSENT: meningismus, tenderness, thyromegaly, tracheal deviation Respiratory exam: PRESENT: unlabored. ABSENT: tachypnea, wheezes Cardiovascular exam: ABSENT: tachycardia GI/Abdominal exam: PRESENT: soft. ABSENT: distended, firm, guarding, tenderness Extremities exam: ABSENT: clubbing Musculoskeletal exam: ABSENT: deformity Neurological exam: PRESENT: alert, awake, oriented to person, oriented to place, oriented to time, oriented to situation Psychiatric exam: ABSENT: agitated, anxious, depressed Focused psych exam: ABSENT: delusional Skin exam: PRESENT: other - Sacral decubitus ulcer appears to be healing well. There is granulation present. There is no evidence of necrosis, erythema, or purulent drainage.. ABSENT: cyanosis, erythema, jaundice Results Laboratory Results: 03/11/20 05:50 03/11/20 05:50 03/10/20 03/10/20 03/10/20 10:41 10:41 10:54 WBC 8.8 RBC 4.45 Hgb 12.5 Hct 37.2 MCV 84 MCH 28.1 MCHC 33.6 RDW 16.0 H Plt Count 199 Seg Neutrophils % 79.9 H Sodium 135.8 L Potassium 4.5 Chloride 104 Carbon Dioxide 23 Anion Gap 9 BUN 16 Creatinine 0.72 Est GFR ( Amer) > 60 Glucose 159 H Calcium 8.5 Magnesium Total Bilirubin 0.4 AST 33 Alkaline Phosphatase 138 H Total Protein 6.4 Albumin 3.6 Urine Color YELLOW Urine Appearance CLOUDY Urine pH 5.0 Ur Specific [place] 1.013 Urine Protein NEGATIVE Urine Glucose (UA) NEGATIVE Urine Ketones NEGATIVE Urine Blood MODERATE H Urine RBC (Auto) 39 03/11/20 03/11/20 05:50 05:50 WBC 7.3 RBC 3.78 Hgb 10.9 L Hct 31.1 L MCV 82 MCH 28.7 MCHC 35.0 RDW 16.2 H Plt Count 158 Seg Neutrophils % 77.9 Sodium 137.0 Potassium 4.5 Chloride 108 H Carbon Dioxide 24 Anion Gap 5 BUN 14 Creatinine 0.67 Est GFR ( Amer) > 60 Glucose 95 Calcium 8.3 L Magnesium 2.3 Total Bilirubin 0.4 AST 25 Alkaline Phosphatase 119 Total Protein 5.5 L Albumin 2.9 L Urine Color Urine Appearance Urine pH Ur Specific [place] Urine Protein Urine Glucose (UA) Urine Ketones Urine Blood Urine RBC (Auto) 03/11/20 05:50 Creatine Kinase 45 Impressions: Head CT 03/10/20 10:35 IMPRESSION: Hyperdense thickening of the right paramedian falx cerebri (image 53 of series 401) could represent a subdural hematoma. EVIDENCE OF ACUTE STROKE: NO. Head MRI 03/10/20 13:05 IMPRESSION: No acute intracranial changes. Fluid in the right mastoid and middle ear cavity. EVIDENCE OF ACUTE STROKE: NO. Assessment & Plan - Diagnosis (1) Sacral decubitus ulcer Qualifiers: Pressure injury stage: stage 3 Qualified Code(s): L89.153 - Pressure ulcer of sacral region, stage 3 Is this a current diagnosis for this admission?: Yes - Plan Summary Plan Summary: This is a 69-year-old female with a stable sacral decubitus ulcer. It appears to be healing well. There is good granulation tissue present. I see no sign of necrosis. Continue with damp to dry dressing changes twice daily. She may continue her hyperbaric treatments at the wound care clinic after discharge. No surgical intervention is required at this time. Surgery will sign off. Please renotify with any questions or concerns.
[2020-03-11] MEDS: OXYCODONE HCL IR 5 MG TABLET PO SCH (09:40)
[2020-03-11] MEDS: DOCUSATE SODIUM 100 MG CAPSULE PO SCH (09:40)
[2020-03-11] MEDS: FAMOTIDINE 20 MG TABLET PO SCH (09:40)
[2020-03-11] MEDS: GABAPENTIN 300 MG CAPSULE PO SCH (09:41)
[2020-03-11] MEDS ORDERED: ENOXAPARIN SODIUM INJ 30 MG/0.3 ML DISP.SYRIN SUBCUT SCH (10:00)
[2020-03-11] MEDS ORDERED: PANTOPRAZOLE SODIUM 20 MG TABLET.DR PO SCH (10:00)
--- NOTE | 2020-03-11 10:18 | PDOC DISCHARGE SUMMARY ---
Impression - Admit/DC Date/PCP Admission Date/Primary Care Provider: 03/10/20 13:28 ROSENDO LOCKWOOD MD Discharge Date: 03/11/20 - Discharge Diagnosis (1) Seizure Is this a current diagnosis for this admission?: Yes (2) Surgical wound dehiscence Is this a current diagnosis for this admission?: No (3) Colon cancer Is this a current diagnosis for this admission?: No (4) UTI (urinary tract infection) Is this a current diagnosis for this admission?: Yes - Additional Information Resuscitation Status: Full Code Discharge Diet: Cardiac Discharge Activity: Activity As Tolerated Referrals: ROSENDO LOCKWOOD MD [Primary Care Provider] - Follow up as needed Prescriptions: Ciprofloxacin HCl [Cipro 500 mg Tablet] 500 mg PO Q12 #10 tablet Home Medications: Albuterol Sulfate [Proair HFA Inhalation Aerosol 8.5 gm MDI] 2 puff IH Q6HP PRN 05/09/19 Gabapentin [Neurontin 300 mg Capsule] 600 mg PO TID 05/09/19 Methocarbamol [Robaxin 750 mg Tablet] 750 mg PO QID 05/09/19 Omeprazole Magnesium [Prilosec Otc] 20 mg PO DAILY 05/09/19 Oxycodone HCl 5 mg PO Q4HP PRN 05/09/19 Butalb/Acetaminophen/Caffeine [Fioricet (50-325-40 mg) Tablet] 1 tab PO Q6HP PRN 03/10/20 Diphenhydramine HCl [Benadryl 50 mg Capsule] 50 mg PO QHS 03/10/20 Oxycodone HCl [Oxy-Ir 5 mg Tablet] 10 mg PO BID 03/10/20 Promethazine HCl [Phenergan 25 mg Tablet] 25 mg PO Q6HP PRN 03/10/20 Ciprofloxacin HCl [Cipro 500 mg Tablet] 500 mg PO Q12 #10 tablet 03/11/20 History of Present Illiness History of Present Illness: RON CLAIRE is a 69 year old female with history of meningioma status post craniotomy 8 2224 years ago, colon cancer with partial colon resection with colostomy bag, 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 The work-up in the emergency room is negative. Only abnormality is UTI the ER physician spoke to neurologist in [place] his impression is seizure activity may be secondary to UTI. CT head shows subdural hematoma and MRI of the brain with contrast did not show any acute pa thology except for previous history of craniotomy. Patient agreed to stay in the hospital overnight patient was given a loading dose of Keppra in the ER. At the time of my examination alert awake oriented communicating well complaining of pain in the back bones. 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 The work-up in the emergency room is negative. Only abnormality is UTI the ER physician spoke to neurologist in [place] his impression is seizure activity may be secondary to UTI. CT head shows subdural hematoma and MRI of the brain with contrast did not show any acute pathology except for previous history of craniotomy. Patient agreed to stay in the hospital overnight patient was given a loading dose of Keppra in the ER. At the time of my examination alert awake oriented communicating well complaining of pain in the back bones. 03/11/2020-no seizure activity noted since admission. Comfortably in the bed communicating well. Expressing desire to go home. Patient was strongly advised to follow-up with primary care physician and get a referral to the neurology for further follow-up. Physical Exam Vital Signs: Temp Pulse Resp BP Pulse Ox 99.3 F 73 18 115/47 L 99 03/11/20 09:44 03/11/20 09:44 03/11/20 09:44 03/11/20 09:44 03/11/20 09:44 Intake & Output 03/10/20 03/11/20 03/12/20 06:59 06:59 06:59 Intake Total 2025 Output Total 900 Balance 1126 Weight 100.9 kg General appearance: PRESENT: no acute distress, obese Head exam: PRESENT: atraumatic Eye exam: PRESENT: PERRLA Mouth exam: PRESENT: moist, tongue midline Teeth exam: PRESENT: poor dentation Neck exam: ABSENT: carotid bruit, JVD, lymphadenopathy, thyromegaly Respiratory exam: PRESENT: decreased breath sounds Cardiovascular exam: PRESENT: RRR. ABSENT: diastolic murmur, rubs, systolic murmur GI/Abdominal exam: PRESENT: normal bowel sounds, soft. ABSENT: distended, guarding, mass, organolmegaly, rebound, tenderness Rectal exam: PRESENT: deferred Extremities exam: PRESENT: full ROM. ABSENT: calf tenderness, clubbing, pedal edema Neurological exam: PRESENT: alert, awake, oriented to person, oriented to place, oriented to time, oriented to situation, CN II-XII grossly intact. ABSENT: motor sensory deficit Psychiatric exam: PRESENT: appropriate affect, normal mood. ABSENT: homicidal ideation, suicidal ideation Skin exam: PRESENT: other - Patient has nonhealing surgical wound around the tailbone. Results Laboratory Results: WBC 7.3 10^3/uL (4.0-10.5) 03/11/20 05:50 RBC 3.78 10^6/uL (3.72-5.28) 03/11/20 05:50 Hgb 10.9 g/dL (12.0-15.5) L 03/11/20 05:50 Hct 31.1 % (36.0-47.0) L 03/11/20 05:50 MCV 82 fl (80-97) 03/11/20 05:50 MCH 28.7 pg (27.0-33.4) 03/11/20 05:50 MCHC 35.0 g/dL (32.0-36.0) 03/11/20 05:50 RDW 16.2 % (11.5-14.0) H 03/11/20 05:50 Plt Count 158 10^3/uL (150-450) 03/11/20 05:50 Lymph % (Auto) 11.9 % (13-45) L 03/11/20 05:50 [place] % (Auto) 7.6 % (3-13) 03/11/20 05:50 Eos % (Auto) 2.3 % (0-6) 03/11/20 05:50 Baso % (Auto) 0.3 % (0-2) 03/11/20 05:50 Absolute Neuts (auto) 5.7 10^3/uL (1.7-8.2) 03/11/20 05:50 Absolute Lymphs (auto) 0.9 10^3/uL (0.5-4.7) 03/11/20 05:50 Absolute Monos (auto) 0.6 10^3/uL (0.1-1.4) 03/11/20 05:50 Absolute Eos (auto) 0.2 10^3/uL (0.0-0.6) 03/11/20 05:50 Absolute Basos (auto) 0.0 10^3/uL (0.0-0.2) 03/11/20 05:50 Seg Neutrophils % 77.9 % (42-78) 03/11/20 05:50 PT 14.6 SEC (11.4-15.4) 03/11/20 05:50 INR 1.13 03/11/20 05:50 Sodium 137.0 mmol/L (137-145) 03/11/20 05:50 Potassium 4.5 mmol/L (3.6-5.0) 03/11/20 05:50 Chloride 108 mmol/L (98-107) H 03/11/20 05:50 Carbon Dioxide 24 mmol/L (22-30) 03/11/20 05:50 Anion Gap 5 (5-19) 03/11/20 05:50 BUN 14 mg/dL (7-20) 03/11/20 05:50 Creatinine 0.67 mg/dL (0.52-1.25) 03/11/20 05:50 Est GFR ( Amer) > 60 (>60) 03/11/20 05:50 Est GFR (MDRD) Non-Af > 60 (>60) 03/11/20 05:50 Glucose 95 mg/dL (75-110) 03/11/20 05:50 Calcium 8.3 mg/dL (8.4-10.2) L 03/11/20 05:50 Magnesium 2.3 mg/dL (1.6-2.3) 03/11/20 05:50 Total Bilirubin 0.4 mg/dL (0.2-1.3) 03/11/20 05:50 Direct Bilirubin 0.0 mg/dL (0.0-0.4) 03/11/20 05:50 Neonat Total Bilirubin Not Reportable 03/11/20 05:50 Neonat Direct Bilirubin Not Reportable 03/11/20 05:50 Neonat Indirect Bili Not Reportable 03/11/20 05:50 AST 25 U/L (14-36) 03/11/20 05:50 ALT 21 U/L (<35) 03/11/20 05:50 Alkaline Phosphatase 119 U/L (38-126) 03/11/20 05:50 Creatine Kinase 45 U/L (30-135) 03/11/20 05:50 Total Protein 5.5 g/dL (6.3-8.2) L 03/11/20 05:50 Albumin 2.9 g/dL (3.5-5.0) L 03/11/20 05:50 TSH 0.75 uIU/mL (0.47-4.68) 03/11/20 05:50 Urine Color YELLOW 03/10/20 10:54 Urine Appearance CLOUDY 03/10/20 10:54 Urine pH 5.0 (5.0-9.0) 03/10/20 10:54 Ur Specific [place] 1.013 03/10/20 10:54 Urine Protein NEGATIVE mg/dL (NEGATIVE) 03/10/20 10:54 Urine Glucose (UA) NEGATIVE mg/dL (NEGATIVE) 03/10/20 10:54 Urine Ketones NEGATIVE mg/dL (NEGATIVE) 03/10/20 10:54 Urine Blood MODERATE (NEGATIVE) H 03/10/20 10:54 Urine Nitrite (Reflex) NEGATIVE (NEGATIVE) 03/10/20 10:54 Urine Bilirubin NEGATIVE (NEGATIVE) 03/10/20 10:54 Urine Urobilinogen NEGATIVE mg/dL (<2.0) 03/10/20 10:54 Leukocyte Esterase Rfl LARGE (NEGATIVE) H 03/10/20 10:54 Urine RBC (Auto) 39 /HPF 03/10/20 10:54 U Hyaline Cast (Auto) 3 /LPF 03/10/20 10:54 Urine WBC (Reflex) 88 /HPF 03/10/20 10:54 Urine WBC Clumps MOD /HPF 03/10/20 10:54 Squamous Epi Cells Auto 1 /HPF 03/10/20 10:54 Urine Mucus (Auto) RARE /LPF 03/10/20 10:54 Urine Yeast (Budding) PRESENT /HPF 03/10/20 10:54 Urine Ascorbic Acid NEGATIVE (NEGATIVE) 03/10/20 10:54 Impressions: Head CT 03/10/20 10:35 IMPRESSION: Hyperdense thickening of the right paramedian falx cerebri (image 53 of series 401) could represent a subdural hematoma. EVIDENCE OF ACUTE STROKE: NO. Head MRI 03/10/20 13:05 IMPRESSION: No acute intracranial changes. Fluid in the right mastoid and middle ear cavity. EVIDENCE OF ACUTE STROKE: NO. Plan Plan of Treatment: Patient is advised to follow-up with primary care physician in next few days and get a referral to the neurology for further evaluation of new onset seizure. Patient is also advised to follow-up with the wound care center. Time Spent: Greater than 30 Minutes Stroke Is this a Stroke Patient?: No Acute Heart Failure - Is this a Heart Failure Patient?: No
[2020-03-11] MEDS: METHOCARBAMOL 750 MG TABLET PO SCH (10:26)
[2020-03-11] MEDS: CIPROFLOXACIN HCL 500 MG TABLET PO SCH (10:26)
[2020-03-11] MEDS: BUTALB/ACETAMINOPHEN/CAFFEINE 1 TAB EACH PO PRN (10:28)
[2020-03-11 11:36] VITALS: BP 91/65
== END 2020-03-11 13:38 | disposition home or self-care (01) | DRG 100 ==
LOC: ER 09:54 → EH 13:28 → 3W 17:22
PROVIDERS: ADMIT Internal Medicine; ATTEND Internal Medicine
DX: R56.9 Unspecified convulsions (principal); L89.153 Pressure ulcer of sacral region, stage 3; I62.00 Nontraumatic subdural hemorrhage, unspecified; T83.518A Infection and inflammatory reaction due to other urinary catheter, initial encounter; T81.31XA Disruption of external operation (surgical) wound, not elsewhere classified, initial encounter; N39.0 Urinary tract infection, site not specified; Y84.6 Urinary catheterization as the cause of abnormal reaction of the patient, or of later complication, without mention of misadventure at the time of the procedure; B95.1 Streptococcus, group B, as the cause of diseases classified elsewhere; B96.5 Pseudomonas (aeruginosa) (mallei) (pseudomallei) as the cause of diseases classified elsewhere; E66.9 Obesity, unspecified; F41.1 Generalized anxiety disorder; K21.9 Gastro-esophageal reflux disease without esophagitis; M19.90 Unspecified osteoarthritis, unspecified site; D50.0 Iron deficiency anemia secondary to blood loss (chronic); Z22.322 Carrier or suspected carrier of Methicillin resistant Staphylococcus aureus; Z85.038 Personal history of other malignant neoplasm of large intestine; Z90.49 Acquired absence of other specified parts of digestive tract; Z79.899 Other long term (current) drug therapy; Z98.1 Arthrodesis status; Z92.21 Personal history of antineoplastic chemotherapy; Z92.3 Personal history of irradiation; Z80.3 Family history of malignant neoplasm of breast
CPT/HCPCS: 36415; 70450; 70553; 80053; 81001; 82550; 83735; 84443; 85025; 85610; 87040; 87070; 87077; 87086; 87088; 87186; 87205; 96361; 96365; 96375; 99285; A9576; J0696; J1953; J2270; J3490; J7030